=== PATIENT | female | born 1980 | race Caucasian/White ===

== ENCOUNTER → 2022-12-03 08:14 | Outpatient (CLI) | payer BC, SELFPAY ==
--- NOTE | ~2022-12-03 | MM_ITS ---
EXAMINATION: MM screening kali BI w mikayla HISTORY: Screening mammogram TECHNIQUE: Craniocaudal and mediolateral oblique 3-D tomosynthesis images were obtained and synthetic 2-D images were generated. CAD analysis was submitted and interpreted. COMPARISON: No prior mammogram is available for comparison at this institution. BREAST PARENCHYMAL COMPOSITION: There are scattered areas of fibroglandular density. FINDINGS: RIGHT BREAST: No suspicious mass, calcification, or architectural distortion are identified to sugges t malignancy. LEFT BREAST: There are possible masses in the middle third of the central breast. IMPRESSION: 1. Possible left breast masses which may represent the patient's baseline however no comparison is cu rrently available. 2. Comparison with prior mammograms is necessary. BI-RADS Category 0: Incomplete: Needs comparison with prior mammograms. Reviewed, dictated and finalized at location A. IMPRESSION: 1. Possible left breast masses which may represent the patient's baseline howev er no comparison is currently available. 2. Comparison with prior mammograms is necessary. BI-RADS Category 0: Incomplete: Needs comparison with prior mammograms.
== END ==
PROVIDERS: PCP Internal Medicine; Visit Provider Nurse Practitioner Obstetrics & Gynecology
DX: Z12.31 Encounter for screening mammogram for malignant neoplasm of breast (principal); R92.8 Other abnormal and inconclusive findings on diagnostic imaging of breast
CPT/HCPCS: 77063; 77067

== ENCOUNTER 2024-05-06 10:07 | Outpatient (CLI) | payer BC, SELFPAY ==
--- NOTE | ~2024-05-06 | MM_ITS ---
EXAMINATION: MM screening kali BI w mikayla HISTORY: Screening TECHNIQUE: Craniocaudal and mediolateral oblique 3-D tomosynthesis images were obtained and synthetic 2-D images were generated. CAD analysis was submitted and interpreted. COMPARISON: Comparison to multiple prior studies sequentially, with oldest reviewed study dated 07/07. BREAST PARENCHYMAL COMPOSITION: Not dense: There are scattered areas of fibroglandular density. FINDINGS: There are clustered indeterminate periareolar calcifications of the left breast. There are possible periareolar masses which are obscured by fibroglandular tissue. The right breast is stable w ithout evidence for malignancy. IMPRESSION: 1. Indeterminate periareolar left breast calcifications with possible associated nearby masses. 2. Additional mammographic views and possible breast ultrasound are recommended. BI-RADS Category 0: Incomplete: Needs additional imaging evaluation. Reviewed, dictated and finalized at location A. [employer] IMPRESSION: 1. Indeterminate periareolar left breast calcifications with possible associate d nearby masses. 2. Additional mammographic views and possible breast ultrasound are recommended . BI-RADS Category 0: Incomplete: Needs additional imaging evaluation.
== END 2024-05-06 10:08 | disposition home or self-care (01) ==
LOC: MICIMG 10:10
PROVIDERS: PCP Internal Medicine; Visit Provider Obstetrics & Gynecology
DX: Z12.31 Encounter for screening mammogram for malignant neoplasm of breast (principal); R92.8 Other abnormal and inconclusive findings on diagnostic imaging of breast
CPT/HCPCS: 77063; 77067

== ENCOUNTER 2024-05-23 08:45 | Outpatient (CLI) | payer BC, SELFPAY ==
--- NOTE | ~2024-05-23 | MMUS_ITS ---
EXAMINATION: MM diagnostic kali LT w mikayla, US breast LT complete HISTORY: Abnormal mammogram TECHNIQUE: Additional 3-D tomosynthesis images of the left breast were performed and synthetic 2-D im ages were generated. CAD analysis was submitted and interpreted. High resolution Limited left breast ultrasound was performed. COMPARISON: Comparison to multiple prior studies sequentially, with oldest reviewed study dated 07/07. BREAST PARENCHYMAL COMPOSITION: Dense: The breasts are heterogeneously dense, which may obscure small masses FINDINGS: MAMMOGRAPHIC FINDINGS: There is a mass in the lower inner quadrant of the left breast, middle third. There are punctate clus tered calcifications in the periareolar location which are likely benign. There is no evidence for ar chitectural distortion. ULTRASOUND: Complete US of all 4 quadrants of the left breast/s and retroareolar region was reviewed. At 7:00, 6 cm from the nipple there is a 5 mm cyst. This corresponds to the mammographic finding. No suspicious sonographic abnormalities to suggest malignancy. IMPRESSION: 1. Probable benign left periareolar calcifications. Benign left breast cyst. 2. Recommend 6 month follow-up diagnostic left mammogram BI-RADS category 3, probably benign findings. Reviewed, dictated and finalized at location [] [facility] IMPRESSION: 1. Probable benign left periareolar calcifications. Benign left breast cyst. 2. Recommend 6 month follow-up diagnostic left mammogram BI-RADS category 3, probably benign findings.
== END 2024-05-23 08:46 | disposition home or self-care (01) ==
PROVIDERS: PCP Obstetrics & Gynecology; Visit Provider Student in an Organized Health Care Education/Training Program
DX: R92.8 Other abnormal and inconclusive findings on diagnostic imaging of breast (principal); N60.02 Solitary cyst of left breast
CPT/HCPCS: 76641; 77061; 77065; G0279

== ENCOUNTER 2024-07-11 00:06 | Day surgery (SDC) | payer BC, SELFPAY ==
[2024-07-01 13:43] VITALS: BMI 41.8
--- OUTSIDE RECORDS SUMMARY | 2024-07-11 00:09 | XMS_ITS ---
Anxiety Disorder N Autoimmune disease N Arthritis N Polyps N Infertility N Acid Reflux (GERD) N History of abnormal pap Y Cancer N Varicosities N Stroke N Neurologic/Epilepsy N Endometriosis N High Cholesterol N Fibromyalgia N Headaches N Kidney Disease N Heart Problems N Thyroid Problems N Kidney or Bladder Problems N GI Problems N Eating Disorder N Anemia N Art (IVF or FET) N Psychiatric Illness N Ovarian Cancer N Diabetes N Pulmonary (TB, Asthma) N Hepatitis/Liver Disease N No Past Medical History N Eczema N Urinary Tract Infection N Abuse/Domestic Violence N Asthma Y Trauma/Violence N Depression/ depression N Heart Disease N Pre-Eclampsia N Hypertension N Osteoporosis N Thrombophilias N Gynecological History Statement/Question Response Date of Last Mammogram 05/06/2024 [place] Date of LMP 08/25/2022 N Was last menstrual period normal N STIs/STDs N Date of Last Colonoscopy N/A Desired Control Method Sterilizati on Abnormal Pap Yes On BCP's at Conception? N HPV Vaccine N Duration of Flow (days) 3 Current Control Method IUD 12 Age at First Child 19 Are cycles usually normal N Frequency of Cycle (Q days) 5 Sexually Active? Y Menses Monthly N Date of DEXA bone scan Age of first menstrual cycle 11 Date of Last Pap Smear 09/22/2022 Sexual Problems? N LMP Approximate N Obstetrics History GPAL:G 2 P 2 0 0 2 Type Value Full Term 2 Living 2 Total 2 Past Encounters Encounter ID Performer Location Encounter Start Date Encounter Closed Date Diagnosis/Indication Diagnosis SNOMED-CT Code Diagnosis ICD10 Code Diagnosis Note [id number] Susan Govea [facility] [address] [address] 09/13/2022 09:12:20 09/13/2022 10:20:16 Abnormal uterine bleeding [id number] 9100 N93.9 The patient and I discussed the various causes of abnormal uterine bleeding, including polyps, fibroids, hyperplasi a, atypia, anovulatio n, etc. We reviewed the typical evaluation with labs, pelvic US and possible endometria l biopsy. Briefly discussed the options available for treatment (depending on the results of evaluation ) such as hormonal treatment (OCPs, progestins ), Mirena, endometria l ablation, and surgery. We spent more than 30 minutes face to face. NOTE: Has an IUD mirena. Exam inconclusi ve so agreeable to labs & US. F/U WWE with discuss results. Obese [id number] E66.9 Rec diet/activ ity/dietic titi/weight loss clinic if covered [id number] Kelsey Holbrook [place] [address],[place] [address] 09/14/2022 09:57:59 09/14/2022 10:48:25 Abnormal uterine bleeding [id number] 9100 N93.9 [id number] Susan Govea , [facility] [address] [address] 09/22/2022 10:00:54 09/22/2022 10:37:51 Gynecologic examination [id number] Z01.419 Suggested Calcium with Vitamin D 1200-1500m g daily. Patient advised to get an annual flu shot in the fall and she could obtain at [facility] or [facility]. Also to obtain TDap vaccinatio n if you have not had one in the last 10 years. Recommend yearly mammograms . Encouraged monthly self breast exams. Encourage safe sexual practices, to use condoms and limit partners if not already in a monogamous relationsh ip. Engage in daily exercise of low impact aerobic exercise 45-60 minutes 4-5 times weekly. Avoid tobacco and illicit drugs as well as using moderation with alcohol intake less than 1-2 8 oz beverages daily. This lifestyle behavior pattern will lead to less health conditions and longer life span. If BMI greater than 25 weight watchers or dietary consult advised. All questions have been answered. Patient appears to understand informatio n, but if you have any questions please call or respond to this email.Pap/ hpv sentSTD Screen sentGeneti c Screen discussedC olon Screen PCPDexa Screen naRoutine Labs PCPmammo ordered Laboratory test result abnormal [id number] R89.9 Today we agreed to repeat the CBC & defer to primary care doctor.Res ults faxed to PCP Screening mammography 24 [id number] Z12.31 Menorrhagia [id number] N9 2.0 US reviwedLab reviewed Discussed option to remove Mirena IUD at 4yrs and replace with new device since using it for heavy menses; and since she is having daily spotting. We also discussed MD consult to consider possible hysterecto my. She will make this appt, consider her options and decide from there. [id number] JARVIS MOELLER, [facility] [place] [address] [address] 05/07/2024 09:07:48 05/07/2024 10:08:23 Gynecologic examination [id number] Z01.419 Annual gynecologi an exam performed. Patient will come back in a year unless there are new symptoms. Suggest Calcium with Vitamin D if not eating in diet. Patient advised to get annual flu shot. Recommend yearly physicals and perform monthly breast exams. Genetic testing is available for patients with family history of cancer. Engage in safe sexual practices, use condoms. Encouraged to have daily exercise. Avoid tobacco and illicit drugs, moderation of alcohol. If BMI greater than 25 dietary consult advised. If you have any questions please call or email. mammogram- discussed need for additional imaging - BIRADS 0 - 05/06/24Dia gnostic mammogram with left breast u/s needed colon cancer screening - DUE; GI referral to [place] DEXA scan- n/a Pap smear- UTD (2022- WNL), will repeat in 2025 per ASCCP guidelines laboratory evaluation - PCP STI testing - declined A Mirena IUD prevents for up to 8 years, and also helps with heavy periods for up to 5 years in women who choose an IUD for control. Screening for malignant neoplasm of colon [id number] Z12.11 Inconclusi ve mammography finding [id number] 32610 R92.2 Health Concerns Section Related Observation LastModified by Organization Detai ls LastModified Time None Recorded Concern Status LastModified by Organization Details LastModified Time None Recorded Advance Directives Directive N: Payers Encounter Date Sequence Insurance Name Policy Number Policy Guido Covered Member ID Guido Member ID Guarantor Name 09/13/2022 1 [place] [id number] Juana [id number] Juana Henry 09/14/2022 1 [place] [id number] Juana [id number] Juana Henry 09/22/2022 1 [place] [id number] Juana [id number] Juana Henry 05/07/2024 1 [facility]: ([place] [id number] Juana Telles Carl [id number] Juana Henry Notes Date Note Type Note Provider Name and Address Organization Details Recorded Time 09/13/2022 text/html Beer - Abnormal BleedingReported bypatient.Notes:Here today for AUB with mirena IUD x 8 mos.No other sx's.+PCBFeels strings.Started out of nowhere.Daily pink tinge on toilet tissue. Neg Dyspareunia Neg pain of abd/pelvis/flankNeg urinary sx'sNeg GI sx'sNeg N/V/F/C/DNeg Vag d/c, odor, irritation, itching [facility] [address], [place], [address], [facility] 09/13/2022 09:43:14 09/22/2022 text/html Annual GYNReport ed bypatient.Menstrual cycle:Irregular cycle intervals Urinary symptoms:No hematuria; No incontinence Vulva:No genital lesion Vagina:Normal vaginal discharge Breast:No breast pain; No breast lump; No nipple discharge Current Contraception:Satisfi ed with current contraception; Intrauterine device (iud) Sexual complaints:No sexual complaints; No pain during intercourse; Normal libido Menopausal Symptoms:No menopausal symptoms; Normal vaginal lubrication Psychological symptoms:No depression; No anxiety; No PMDD Preventive measures:Encourage self breast examination; Encourage regular exercise; Encourage no tobacco use; Encourage regular mammograms starting age 40; Followed with yearly pap smears; Needs to schedule mammogram GERARDO Smith [address], [place], [address], [facility] 09/22/2022 10:31:50 05/07/2024 text/html Annual GYNReport ed bypatient.History:no gynecologic complaints Menstrual cycle:No periods with IUD Urinary symptoms:No hematuria; No incontinence Vulva:No genital lesion Vagina:Normal vaginal discharge Breast:No breast pain; No breast lump; No nipple discharge Current Contraception:Satisfi ed with current contraception; Intrauterine device (iud) Sexual complaints:No sexual complaints; No pain during intercourse; Normal libido Menopausal Symptoms:No menopausal symptoms; Normal vaginal lubrication Psychological symptoms:No depression; No anxiety; No PMDD Preventive measures:Encourage self breast examination; Encourage regular exercise; Encourage no tobacco use; Encourage regular mammograms starting age 40 Patient presents for annual well woman exam. Patient denies concerns today. JARVIS MOELLER NP [address], [place], [address], [facility] 05/07/2024 10:01:34 OBGyn Episode Ob Episode Information Episode Created Date Number of Fetuses Patient Bloodtype Patient rh Status Prepregnancy Weight lbs Domestic Partner Domestic Partner Phone Father Name Motion Picture Narrator Status 09/14/19 23 1 CLOSED Fetus Data First Name Last Name Admitted to NICU Weight (g) Sex Living Outcome Pediatric Complications Fetus ID Race Codes Race Delivery Type 3685.43 5 M Full Term Vaginal Delivery Bertin Calculation Initial Bertin Date Initial Exam Date Initial Exam Provider Initial Ultrasound Date Last Menstrual Period Date Ultra Sound Weeks Gestation 0 Eighteen To Twenty Week Bertin Update Ultra Sound Date Fundal Height At Umbil Quickening Date Ultra Sound Latest Weeks Gestation Final Bertin Confirmed By Final Bertin Confirmed Date Final Bertin Date Ultra Sound Latest Days Gestation 0 0 Menstrual History Last Menstrual Date Menses Monthly On Bcp Conception Prior Menses Frequency Hcg Plus Date Menarche Onset Age Delivery Information Delivery Date Delivery Type Labor Anesthesia Weeks Gestation Incision Type Labor Labor Length Hrs Delivered By Post Complications Tubal Sterilization Discharge Date Comments 2 39 Discharge Information Feeding Method Contraceptive Method Maternal HG B and HCT Levels Ob Episode Information Episode Created Date Number of Fetuses Patient Bloodtype Patient rh Status Prepregnancy Weight lbs Domestic Partner Domestic Partner Phone Father Name Motion Picture Narrator Status 09/14/19 23 1 CLOSED Fetus Data First Name Last Name Admitted to NICU Weight (g) Sex Living Outcome Pediatric Complications Fetus ID Race Codes Race Delivery Type 3033.16 9704 F Full Term Vaginal Delivery Bertin Calculation Initial Bertin Date Initial Exam Date Initial Exam Provider Initial Ultrasound Date Last Menstrual Period Date Ultra Sound Weeks Gestation 0 Eighteen To Twenty Week Bertin Update Ultra Sound Date Fundal Height At Umbil Quickening Date Ultra Sound Latest Weeks Gestation Final Bertin Confirmed By Final Bertin Confirmed Date Final Bertin Date Ultra Sound Latest Days Gestation 0 0 Menstrual History Last Menstrual Date Menses Monthly On Bcp Conception Prior Menses Frequency Hcg Plus Date Menarche Onset Age Delivery Information Delivery Date Delivery Type Labor Anesthesia Weeks Gestation Incision Type Labor Labor Length Hrs Delivered By Post Complications Tubal Sterilization Discharge Date Comments 0 40 Discharge Information Feeding Method Contraceptive Method Maternal HG B and HCT Levels Data Portability Created on: July 11, 2024 Juana Henry .[id number] : 1980 Sex: Female Author Organization [facility] Address [address] [place] [address] Care Team Providers Care Padded Products Finisher Name Role Phone VIOLETTA HUNT Primary Care Provider [phone] Assessment Encounter Date Assessment Date Assessment LastModified by Organization Details LastModified Time 09/22/2022 09/22/2022 Annual gynecological exam performed. Patient will come back in a year unless there are new symptoms. Not available 09/22/2022 10:11:17 05/07/2024 05/07/2024 Annual gynecological exam performed. Patient will come back in a year unless there are new symptoms. [email or web address] Not available 05/04/2024 11:24:26 Plan of Treatment Reminders Order Date Submit Date Provider Last Modified By Organization Details Last Modified Time Details Appointments None recorded. Lab CBC w/ auto diff [address] [facility] (Lab), [address], [place], [address], 3 04:48:05 hormone panel, serum or plasma [address] [facility] (Lab), [address] [place], [address], 3 21:12:04 HbA1c (hemoglobi n A1c), blood [address] [facility] (Lab), [address], [place], [address], 3 21:12:03 prolactin, serum [address] [facility] (Lab), [address], [place], [address], 3 21:12:04 testostero ne free/testo sterone total, ratio, serum [address] [facility] (Lab), [address], [place], [address], 3 21:12:04 TSH, serum or plasma [address] [facility] (Lab), [address], [place], [address], 3 21:12:03 unlisted lab - cbcwdiff / comprehens ivis metabolic panel [address] [facility] (Lab), [address] [facility], [place], [address], 3 21:12:02 Referral None recorded. Procedures colonoscop y screening (PROC) 2024 025 [facility], [address], [address], [place], [address], 5 11:06:01 Surgeries None recorded. Imaging MAMMO, diagnostic , digital, bilateral - BIRADS 0 2024 025 [facility], [address], [place], [address], 5 04:01:27 MAMMO, screening, bilateral 2022 023 [facility] [place], [address], [place], [address], 09:56:04 US, pelvis 2022 023 [email or web address] [address], [address], [place], [address], 17:01:30 US, transvagin al 2022 023 [email or web address] [facility] [place], [address], [place], [address], 17:01:30 US, pelvis, complete 2022 023 [email or web address] [address], [address], [place], [address], 15:32:27 Medication Orders None recorded. Patient TargetsNo targets recorded. Patient InstructionsNo instructions recorded. Reason for Referral None Reported. Results Created Date Observation Date Name Description Value Unit Range Abnormal Flag Note LastModifiedBy Organization Detail LastModifiedTime 09/14/1909/13/2022 CT/GC AND TRICH OMONA S VAGIN MUNIR (RRNA ), SWAB chlamydia trachomatis, PCR Negati ve negati ve Not Available [facility] (Lab) [address] [place], [address], 09/14/2022 12:02:51 09/14/19 23 09/13/2022 CT/GC AND TRICH OMONA S VAGIN MUNIR (RRNA ), SWAB neisseria gonorrhoeae, PCR Negati ve negati ve Not Available [facility] (Lab) [address], [place], [address], 09/14/2022 12:02:51 09/14/19 23 09/13/2022 CT/GC AND TRICH OMONA S VAGIN MUNIR (RRNA ), SWAB trichomonas vaginalis ribosomal RNA (rrna) Negati ve negati ve Not Available [facility] (Lab) [address], [place], [address], 09/14/2022 12:02:51 09/14/19 23 09/13/2022 CBCWD IFF / COMPR EHENS IVIS METAB OLIC PANEL WBC 14.7 10'3/ uL 3.6-10 .2 high Not Available [facility] (Lab) [address], [place], [address], 09/19/2022 21:12:02 09/14/19 23 09/13/2022 CBCWD IFF / COMPR EHENS IVIS METAB OLIC PANEL RBC 5.40 10'6/ uL (based on docume nted legal sex) 4.10-5 .30 high Not Available [facility] (Lab) [address], [place], [address], 09/19/2022 21:12:02 09/14/19 23 09/13/2022 CBCWD IFF / COMPR EHENS IVIS METAB OLIC PANEL HGB 17.0 g/dL (based on docume nted legal sex) 11.9-1 5.8 high Not Available [facility] (Lab) [address], [place], [address], 09/19/2022 21:12:02 09/14/19 23 09/13/2022 CBCWD IFF / COMPR EHENS IVIS METAB OLIC PANEL HCT 53.9 % (based on docume nted legal sex) 37.4-4 8.3 high Not Available [facility] (Lab) [address], [place], [address], 09/19/2022 21:12:02 09/14/19 23 09/13/2022 CBCWD IFF / COMPR EHENS IVIS METAB OLIC PANEL MCV 99.8 fL 82.0-9 9.0 high Not Available [facility] (Lab) [address], [place], [address], 09/19/2022 21:12:02 09/14/19 23 09/13/2022 CBCWD IFF / COMPR EHENS IVIS METAB OLIC PANEL MCH 31.5 pg 27.0-3 3.0 Not Available [facility] (Lab) [address], [place], [address], 09/19/2022 21:12:02 09/14/19 23 09/13/2022 CBCWD IFF / COMPR EHENS IVIS METAB OLIC PANEL MCHC 31.5 g/dL 32.0-3 6.0 low Not Available [facility] (Lab) [address], [place], [address], 09/19/2022 21:12:02 09/14/19 23 09/13/2022 CBCWD IFF / COMPR EHENS IVIS METAB OLIC PANEL RDW 13.2 % 11.0-1 5.0 Not Available [facility] (Lab) [address], [place], [address], 09/19/2022 21:12:02 09/14/19 23 09/13/2022 CBCWD IFF / COMPR EHENS IVIS METAB OLIC PANEL plt 379 10'3/ uL 150-45 0 Not Available [facility] (Lab) [address], [place], [address], 09/19/2022 21:12:02 09/14/19 23 09/13/2022 CBCWD IFF / COMPR EHENS IVIS METAB OLIC PANEL MPV 11.8 fL 9.8-12 .7 Not Available [facility] (Lab) [address], [place], [address], 09/19/2022 21:12:02 09/14/19 23 09/13/2022 CBCWD IFF / COMPR EHENS IVIS METAB OLIC PANEL NRBC's 0.0 % 0 Not Available [facility] (Lab) [address], [place], [address], 09/19/2022 21:12:02 09/14/19 23 09/13/2022 CBCWD IFF / COMPR EHENS IVIS METAB OLIC PANEL absolute NRBCs 0.0 10'3/ uL 0 Not Available [facility] (Lab) [address], [place], [address], 09/19/2022 21:12:02 09/14/19 23 09/13/2022 CBCWD IFF / COMPR EHENS IVIS METAB OLIC PANEL neutrophils 76.7 % 37.0-7 2.0 high Not Available [facility] (Lab) [address], [place], [address], 09/19/2022 21:12:02 09/14/19 23 09/13/2022 CBCWD IFF / COMPR EHENS IVIS METAB OLIC PANEL lymphocytes 14.1 % 16.0-4 8.0 low Not Available [facility] (Lab) [address], [place], [address], 09/19/2022 21:12:02 09/14/19 23 09/13/2022 CBCWD IFF / COMPR EHENS IVIS METAB OLIC PANEL monocytes 6.4 % 4.0-14 .0 Not Available [facility] (Lab) [address], [place], [address], 09/19/2022 21:12:02 09/14/19 23 09/13/2022 CBCWD IFF / COMPR EHENS IVIS METAB OLIC PANEL eosinophils 1.9 % 0.0-9. 0 Not Available [facility] (Lab) [address], [place], [address], 09/19/2022 21:12:02 09/14/19 23 09/13/2022 CBCWD IFF / COMPR EHENS IVIS METAB OLIC PANEL basophils 0.4 % 0.0-2. 0 Not Available [facility] (Lab) [address], [place], [address], 09/19/2022 21:12:02 09/14/19 23 09/13/2022 CBCWD IFF / COMPR EHENS IVIS METAB OLIC PANEL immature granulocytes 0.5 % no define d refere nce range Not Available [facility] (Lab) [address], [place], [address], 09/19/2022 21:12:02 09/14/19 23 09/13/2022 CBCWD IFF / COMPR EHENS IVIS METAB OLIC PANEL absolute neutrophils 11.2 10'3/ uL 1.1-6. 0 high Not Available [facility] (Lab) [address], [place], [address], 09/19/2022 21:12:02 09/14/19 23 09/13/2022 CBCWD IFF / COMPR EHENS IVIS METAB OLIC PANEL absolute lymphocytes 2.1 10'3/ uL 0.7-3. 4 Not Available [facility] (Lab) [address], [place], [address], 09/19/2022 21:12:02 09/14/19 23 09/13/2022 CBCWD IFF / COMPR EHENS IVIS METAB OLIC PANEL absolute monocytes 0.9 10'3/ uL 0.3-1. 0 Not Available [facility] (Lab) [address], [place], [address], 09/19/2022 21:12:02 09/14/19 23 09/13/2022 CBCWD IFF / COMPR EHENS IVIS METAB OLIC PANEL absolute eosinophils 0.3 10'3/ uL 0.0-0. 6 Not Available [facility] (Lab) [address], [place], [address], 09/19/2022 21:12:02 09/14/19 23 09/13/2022 CBCWD IFF / COMPR EHENS IVIS METAB OLIC PANEL absolute basophils 0.1 10'3/ uL 0.0-0. 1 Not Available [facility] (Lab) [address], [place], [address], 09/19/2022 21:12:02 09/14/19 23 09/13/2022 CBCWD IFF / COMPR EHENS IVIS METAB OLIC PANEL absolute immature granulocytes 0.1 10'3/ uL 0.00-0 .10 023 8:11 AM: P indic ates parti al resul ts on a panel have been relea sed. Addit ional resul ts will follo w. 023 8:11 AM: This resul t has been final verif ied. No addit ional or thomas ed resul ts are expec radha. Not Available [facility] (Lab) [address], [place], [address], 09/19/2022 21:12:02 09/14/19 23 09/13/2022 CBCWD IFF / COMPR EHENS IVIS METAB OLIC PANEL sodium 137 mmol/ L 133-14 6 Not Available [facility] (Lab) [address], [place], [address], 09/19/2022 21:12:02 09/14/19 23 09/13/2022 CBCWD IFF / COMPR EHENS IVIS METAB OLIC PANEL potassium 4.5 mmol/ L 3.5-5. 1 Not Available [facility] (Lab) [address], [place], [address], 09/19/2022 21:12:02 09/14/19 23 09/13/2022 CBCWD IFF / COMPR EHENS IVIS METAB OLIC PANEL chloride 102 mmol/ L 98-107 Not Available [facility] (Lab) [address] [place], [address], 09/19/2022 21:12:02 09/14/19 23 09/13/2022 CBCWD IFF / COMPR EHENS IVIS METAB OLIC PANEL carbon dioxide 25 mmol/ L 21-31 Not Available [facility] (Lab) [address] [place], [address], 09/19/2022 21:12:02 09/14/19 23 09/13/2022 CBCWD IFF / COMPR EHENS IVIS METAB OLIC PANEL anion gap 10 mmol/ L 4-13 Not Available [facility] (Lab) [address], [place], [address], 09/19/2022 21:12:02 09/14/19 23 09/13/2022 CBCWD IFF / COMPR EHENS IVIS METAB OLIC PANEL blood urea nitrogen 11 mg/dL 7-25 Not Available [facility] (Lab) [address], [place], [address], 09/19/2022 21:12:02 09/14/19 23 09/13/2022 CBCWD IFF / COMPR EHENS IVIS METAB OLIC PANEL creatinine 0.86 mg/dL 0.60-1 .30 Not Available [facility] (Lab) [address], [place], [address], 09/19/2022 21:12:02 09/14/19 23 09/13/2022 CBCWD IFF / COMPR EHENS IVIS METAB OLIC PANEL egfrcr (CKD-epi 2020) 86 mL/mi n/1.7 3_m2 >=60 Not Available [facility] (Lab) [address], [place], [address], 09/19/2022 21:12:02 09/14/19 23 09/13/2022 CBCWD IFF / COMPR EHENS IVIS METAB OLIC PANEL calcium 9.9 mg/dL 8.3-10 .5 Not Available [facility] (Lab) [address], [place], [address], 09/19/2022 21:12:02 09/14/19 23 09/13/2022 CBCWD IFF / COMPR EHENS IVIS METAB OLIC PANEL glucose 87 mg/dL 70-100 Not Available [facility] (Lab) [address], [place], [address], 09/19/2022 21:12:02 09/14/19 23 09/13/2022 CBCWD IFF / COMPR EHENS IVIS METAB OLIC PANEL protein, total 7.6 g/dL 6.4-8. 3 Not Available [facility] (Lab) [address], [place], [address], 09/19/2022 21:12:02 09/14/19 23 09/13/2022 CBCWD IFF / COMPR EHENS IVIS METAB OLIC PANEL albumin 4.7 g/dL 3.5-5. 0 Not Available [facility] (Lab) [address], [place], [address], 09/19/2022 21:12:02 09/14/19 23 09/13/2022 CBCWD IFF / COMPR EHENS IVIS METAB OLIC PANEL ALT 16 units /L 9-43 Not Available [facility] (Lab) [address], [place], [address], 09/19/2022 21:12:02 09/14/19 23 09/13/2022 CBCWD IFF / COMPR EHENS IVIS METAB OLIC PANEL alkaline phosphatase 46 units /L 34-104 Not Available [facility] (Lab) [address], [place], [address], 09/19/2022 21:12:02 09/14/19 23 09/13/2022 CBCWD IFF / COMPR EHENS IVIS METAB OLIC PANEL AST 18 units /L 13-39 Not Available [facility] (Lab) [address], [place], [address], 09/19/2022 21:12:02 09/14/19 23 09/13/2022 CBCWD IFF / COMPR EHENS IVIS METAB OLIC PANEL bilirubin, total 0.6 mg/dL 0.2-1. 2 Not Available [facility] (Lab) [address], [place], [address], 09/19/2022 21:12:02 09/14/19 23 09/13/2022 HEMOG LOBIN A1C hemoglobin A1C 5.5 % 0-5.6 The [employer]i can [employer] i[employer] n recom mends that a prima ry goal of audra villasenor d be a HBA1C of < 7% and that physi colette grant luthea the treat ment regim en in patie nts with HBA1C value s consi stent ly > 8%. <5.7% Linnea l 5.7 - 6.4% Incre ased risk for diabe april >=6.5 % Diagn ostic of diabe april <7.0% Goal of thera py >8.0% Actio n sugge sted Not Available [facility] (Lab) [address] [place], [address], 09/19/2022 21:12:03 09/14/19 23 09/13/2022 TSH, REFLE X FREE T4 TSH 1.26 uIU/m L 0.30-5 .33 Not Available [facility] (Lab) [address] [place], [address], 09/19/2022 21:12:03 09/14/19 23 09/13/2022 PROLA CTIN prolactin, total 5.92 NG/mL 4.79-2 3.30 This assay was perfo rmed using [employer] ratio n reage nts and test kits. Value s obtai ladi with other assay metho ds or kits canno t be used inter thomas eay . Not Available [facility] (Lab) [address] [place], [address], 09/19/2022 21:12:03 09/14/19 23 09/13/2022 FSH, LH, ESTRA DIOL estradiol 14.3 pg/mL This assay was perfo rmed using [employer] reage nts and test kits. Value s obtai ladi with other assay metho ds or kits canno t be used inter [facility] . Femal e Estra diol Range s: Folli cular phase 12.4- 233 pg/mL Ovula tion phase 41.0- 398 pg/mL Lutea l phase 22.3- 341 pg/mL Postm enopa usal< 5-138 pg/mL Healt hy Pregn ant Women 1st Trime ster1 54-32 43 pg/mL 2nd Trime ster1 561-2 1280 pg/mL 3rd Trime ster8 525-> 28184 pg/mL Not Available [facility] (Lab) [address], [place], [address], 09/19/2022 21:12:04 09/14/19 23 09/13/2022 FSH, LH, ESTRA DIOL FSH 40.3 mIU/m L This assay was perfo rmed using [employer] reage nts and test kits. Value s obtai ladi with other assay metho ds or kits canno t be used inter thomas eably . Femal es Folli cular : 3.5-1 2.5 mIU/m L Ovula tion: 4.7-2 1.5 mIU/m L Lutea l: 1.7-7 .7 mIU/m L Postm enopa use: 25.8- 134.8 mIU/m L Not Available [facility] (Lab) [address] [facility], [place], [address], 09/19/2022 21:12:04 09/14/19 23 09/13/2022 FSH, LH, ESTRA DIOL LH 17.9 mIU/m L This assay was perfo rmed using [employer] reage nts and test kits. Value s obtai ladi with other assay metho ds or kits canno t be used inter thomas eably . Femal es Mid-F ollic ular: 2.4-1 2.6 mIU/m L Mid-C ycle: 14.0- 95.6 mIU/m L Mid-L uteal : 1.0-1 1.4 mIU/m L Postm enopa use: 7.7-5 8.5 mIU/m L Not Available [facility] (Lab) [address] [place], [address], 09/19/2022 21:12:04 09/14/19 23 09/13/2022 TESTO STERO NE, FREE( DIALY SIS) AND TOTAL (LC/M S/MS) testosterone , total 21 NG/dL 2-45 For addit ional infor matio n, pleas e refer to http: //manuel palomares.que stdia gnost ics.c om/fa q/Tot Charly Ruff [facility] (This link is being provi ded for infor mateoneha plasencia/ educa kandace l purpo ses only. ) This test was devel oped and its michelle tical perfo rmanc e paula cteri stics have been deter mined by [facility]. It has not been clear ed or appro eren by the FDA. This assay has been valid ated pursu ant to the CLIA regul ation s and is used for clini an purpo ses. Not Available [facility] (Lab) [address], [place], [address], 09/19/2022 21:12:04 09/14/19 23 09/13/2022 TESTO STERO NE, FREE( DIALY SIS) AND TOTAL (LC/M S/MS) testosterone , free 2.7 pg/mL 0.1-6. 4 This test was devel oped and its michelle tical perfo rmanc e paula cteri stics have been deter mined by [employer] [facility]. It has not been clear ed or appro eren by the FDA. This assay has been valid ated pursu ant to the CLIA regul ation s and is used for clini an purpo ses. Perfo rming Organ izati on Marvin palomares: Site ID: [id number] Name: [facility] Annia ruiz Addre ss: [id number] [place] [address] Direc tor: Hunter hernandez M.D. Not Available [facility] (Lab) [address], [place], [address], 09/19/2022 21:12:04 09/23/19 23 09/22/2022 CBC W/DIF F WBC 13.3 10'3/ uL 3.6-10 .2 high Not Available [facility] (Lab) [address], [place], [address], 09/23/2022 04:48:05 09/23/19 23 09/22/2022 CBC W/DIF F RBC 5.09 10'6/ uL (based on docume nted legal sex) 4.10-5 .30 Not Available [facility] (Lab) [address] [place], [address], 09/23/2022 04:48:05 09/23/19 23 09/22/2022 CBC W/DIF F HGB 16.0 g/dL (based on docume nted legal sex) 11.9-1 5.8 high Not Available [facility] (Lab) [address] [facility], [place], [address], 09/23/2022 04:48:05 09/23/19 23 09/22/2022 CBC W/DIF F HCT 49.3 % (based on docume nted legal sex) 37.4-4 8.3 high Not Available [facility] (Lab) [address], [place], [address], 09/23/2022 04:48:05 09/23/19 23 09/22/2022 CBC W/DIF F MCV 96.9 fL 82.0-9 9.0 Not Available [facility] (Lab) [address], [place], [address], 09/23/2022 04:48:05 09/23/19 23 09/22/2022 CBC W/DIF F MCH 31.4 pg 27.0-3 3.0 Not Available [facility] (Lab) [address], [place], [address], 09/23/2022 04:48:05 09/23/19 23 09/22/2022 CBC W/DIF F MCHC 32.5 g/dL 32.0-3 6.0 Not Available [facility] (Lab) [address] [place], [address], 09/23/2022 04:48:05 09/23/19 23 09/22/2022 CBC W/DIF F RDW 12.7 % 11.0-1 5.0 Not Available [facility] (Lab) [address], [place], [address], 09/23/2022 04:48:05 09/23/19 23 09/22/2022 CBC W/DIF F plt 351 10'3/ uL 150-45 0 Not Available [facility] (Lab) [address], [place], [address], 09/23/2022 04:48:05 09/23/19 23 09/22/2022 CBC W/DIF F MPV 12.1 fL 9.8-12 .7 Not Available [facility] (Lab) [address], [place], [address], 09/23/2022 04:48:05 09/23/19 23 09/22/2022 CBC W/DIF F NRBC's 0.0 % 0 Not Available [facility] (Lab) [address] [facility], [place], [address], 09/23/2022 04:48:05 09/23/19 23 09/22/2022 CBC W/DIF F absolute NRBCs 0.0 10'3/ uL 0 Not Available [facility] (Lab) [address], [place], [address], 09/23/2022 04:48:05 09/23/19 23 09/22/2022 CBC W/DIF F neutrophils 68.9 % 37.0-7 2.0 Not Available [facility] (Lab) [address], [place], [address], 09/23/2022 04:48:05 09/23/19 23 09/22/2022 CBC W/DIF F lymphocytes 20.5 % 16.0-4 8.0 Not Available [facility] (Lab) [address], [place], [address], 09/23/2022 04:48:05 06/15/09/22/2022 CBC W/DIF F monocytes 7.8 % 4.0-14 .0 Not Available [facility] (Lab) [address], [place], [address], 09/23/2022 04:48:05 09/23/19 23 09/22/2022 CBC W/DIF F eosinophils 2.0 % 0.0-9. 0 Not Available [facility] (Lab) [address] [place], [address], 09/23/2022 04:48:05 09/23/19 23 09/22/2022 CBC W/DIF F basophils 0.4 % 0.0-2. 0 Not Available [facility] (Lab) [address], [place], [address], 09/23/2022 04:48:05 09/23/19 23 09/22/2022 CBC W/DIF F immature granulocytes 0.4 % no define d refere nce range Not Available [facility] (Lab) [address], [place], [address], 09/23/2022 04:48:05 09/23/19 23 09/22/2022 CBC W/DIF F absolute neutrophils 9.2 10'3/ uL 1.1-6. 0 high Not Available [facility] (Lab) [address] [place], [address], 09/23/2022 04:48:05 09/23/19 23 09/22/2022 CBC W/DIF F absolute lymphocytes 2.7 10'3/ uL 0.7-3. 4 Not Available [facility] (Lab) [address] [place], [address], 09/23/2022 04:48:05 09/23/19 23 09/22/2022 CBC W/DIF F absolute monocytes 1.0 10'3/ uL 0.3-1. 0 Not Available [facility] (Lab) [address] [place], [address], 09/23/2022 04:48:05 09/23/19 23 09/22/2022 CBC W/DIF F absolute eosinophils 0.3 10'3/ uL 0.0-0. 6 Not Available [facility] (Lab) [address], [place], [address], 09/23/2022 04:48:05 09/23/19 23 09/22/2022 CBC W/DIF F absolute basophils 0.1 10'3/ uL 0.0-0. 1 Not Available [facility] (Lab) [address], [place], [address], 09/23/2022 04:48:05 09/23/19 23 09/22/2022 CBC W/DIF F absolute immature granulocytes 0.1 10'3/ uL 0.00-0 .10 2022 3:45 AM: P indic ates parti al resul ts on a panel have been relea sed. Addit ional resul ts will follo w. 2022 3:45 AM: This resul t has been final verif ied. No addit ional or thomas ed resul ts are expec radha. 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 Elect leonardo adan rodolfo d by Leda Cheema ica on 2022 at 12:36 PM ----- ----- ----- ----- ----- ----- ----- ----- ----- ----- ----- ----- ----- ----- ----- ----- ----- ---- HPV RESUL TS: HPV mRNA E6/E7 : No HPV mRNA Detec radha NOTE: This high risk HPV mRNA assay detec ts fourt een high- risk HPV types (16, 18, 31, 33, 35, 39, 45, 51, 52, 56, 58, 59, 66, 68) witho ut diffe renti ation . COMME NT: This speci men was revie wed by a Cytot echno logis t and/o r Patho logis t (as indic ated in this repor t) after evalu ation using the Thinp rep Imagi ng Syste m. CLINI AN INFOR MATIO N: Menst rual Statu s: LMP (if appli cable ): Clini an Histo ry/Pr eviou s Pap: Type of Neopl mariana (if appli cable ): Signi fican t Clini an Findi ngs: Other Histo ry: Hormo yesica (if appli cable ): PAP EDUCA KANDACE L NOTE: The Pap Test is a scree deepak test with an inher ent false negat ivis rate. Liqui d-bas ed sampl ing may decre ase, but will not elimi anderson, false negat ivis resul ts. A negat ivis resul t does not precl ude the prese nce and/o r devel opmen t of disea se, since the prese nce of abnor mal cells in the sampl e depen ds on the locat ion of the lesio n and sampl ing techn ique. Vishnu nued regul ar scree deepak is the best metho d of cance r preve ntion . If repor radha cytol ogic findi ng do not corre late with physi an and/o r histo rical findi ngs, furth er inves tigat ion is recom teetee d, as clini orlando griffith nted. Not Available [facility] (Lab) [address], [place], [address], 09/27/2022 13:38:57 09/23/19 23 09/22/2022 TRICH OMONA S VAGIN MUNIR (RRNA ) trichomonas vaginalis ribosomal RNA (rrna) Negati ve negati ve Not Available [facility] (Lab) [address], [place], [address], 09/27/2022 13:38:58 09/23/19 23 09/22/2022 CT/GC (ISA) , THINP REP VIAL chlamydia trachomatis, PCR Negati ve negati ve Not Available [facility] (Lab) [address], [place], [address], 09/27/2022 13:38:58 09/23/19 23 09/22/2022 CT/GC (ISA) , THINP REP VIAL neisseria gonorrhoeae, PCR Negati ve negati ve Not Available [facility] (Lab) [address], [place], [address], 09/27/2022 13:38:58 09/15/19 23 09/14/2022 US, pelvi s No observ ation record ed. [email or web address] [facility] [address], [place], [address], 09/14/2022 11:38:55 09/15/19 23 09/14/2022 US, trans vagin al No observ ation record ed. [email or web address] [facility] [address], [place], [address], 09/14/2022 11:38:37 09/15/19 23 09/14/2022 US, pelvi s No observ ation record ed. [email or web address] [address] [address], [place], [address], 09/20/2022 15:05:09 12/06/19 23 12/03/2022 MAMMO , scree deepak, bilat eral No observ ation record ed. [email or web address] [facility] [address], [place], [address], 12/06/2022 14:31:17 12/06/19 23 12/03/2022 MAMMO , scree deepak, bilat eral No observ ation record ed. [email or web address] [facility] [address], [place], [address], 12/13/2022 10:44:30 12/08/19 23 07/17/2020 imagi ng/di agnos tic resul t No observ ation record ed. [address], [address], 12/08/2022 10:05:28 12/28/19 23 12/03/2022 MAMMO , scree deepak, bilat eral No observ ation record ed. [facility] [address], [place], [address], 12/27/2022 19:04:44 12/28/19 23 12/03/2022 MAMMO , scree deepak, bilat eral No observ ation record ed. [facility] [address], [place], [address], 12/30/2022 14:49:06 05/06/19 25 05/06/2024 MAMMO , scree deepak, bilat eral No observ ation record ed. [email or web address] [place] [address] [address], [place], [address], 05/07/2024 17:29:22 05/07/19 25 05/06/2024 MAMMO , scree deepak, bilat eral No observ ation record ed. [facility] [address], [place], [address], 05/07/2024 17:33:47 05/08/19 25 05/06/2024 MAMMO , scree deepak, bilat eral No observ ation record ed. [facility] [address], [place], [address], 05/09/2024 10:21:28 05/23/19 25 05/23/2024 MAMMO , diagn ostic , tomos ynthe sis, unila teral No observ ation record ed. [address], [place], [address], 05/23/2024 15:58:07 05/23/19 25 05/23/2024 MAMMO , diagn ostic , tomos ynthe sis, unila teral No observ ation record ed. [address], [place], [address], 05/23/2024 16:00:01 05/23/19 25 05/23/2024 MAMMO , diagn ostic , tomos ynthe sis, unila teral No observ ation record ed. [address], [place], [address], 05/23/2024 16:00:28 Result Notes None recorded. Problems Name Problem SNOMED Code Status Onset Date Resolution Date Notes Provider Name and Address Organization Details Recorded Time Insertion of intrauterin e contracepti ve device Active 2017 INSERTION OF IUD;Record ed Elsewhere: No Locatio n: [facility] Stella Krista rce: EHR Chroni c: N Practice ID: [id number] Billa ble Time: 09:30:00 AM Not Available [facility] 22:02:45 Problem Notes None recorded. Procedures Surgical History Date Name Laterality Status Provider Name and Address Organization Details Recorded Time 05/06/19 25 Date of Last Mammogram completed Loly Escalante [facility] 05/07/2024 09:21:05 09/23/19 23 Date of Last Pap Smear completed Debra Roy [facility] 05/02/2024 10:01:20 09/21/19 18 Hysteroscopy completed Debrarayo Roy [facility] 05/02/2024 09:56:18 [facility] 10:15:04 cholecystectomy completed [facility] 05/02/2024 09:58:45 Imaging Results Imaging Date Name Status LastModified by Organization Details LastModified Time 09/14/2022 US, pelvis completed [email or web address] [facility] [address], [place], [address], 09/14/2022 11:38:55 09/14/2022 US, transvaginal completed [email or web address] [facility] [address], [place], [address], 09/14/2022 11:38:37 09/14/2022 US, pelvis completed [email or web address] [address], [place], [address], 09/20/2022 15:05:09 12/03/2022 MAMMO, screening, bilateral completed [email or web address] [facility] [address], [place], [address], 12/06/2022 14:31:17 12/03/2022 MAMMO, screening, bilateral completed [email or web address] [facility] [address], [place], [address], 12/13/2022 10:44:30 07/17/2020 imaging/diagnost ic result completed [address], [place], [address], 12/08/2022 10:05:28 12/03/2022 MAMMO, screening, bilateral completed [facility] [address], [place], [address], 12/27/2022 19:04:44 12/03/2022 MAMMO, screening, bilateral completed [facility] [address], [place], [address], 12/30/2022 14:49:06 05/06/2024 MAMMO, screening, bilateral completed [facility] [address], [place], [address], 05/07/2024 17:29:22 05/06/2024 MAMMO, screening, bilateral completed [facility] [address], [place], [address], 05/07/2024 17:33:47 05/06/2024 MAMMO, screening, bilateral completed [facility] [address], [place], [address], 05/09/2024 10:21:28 05/23/2024 MAMMO, diagnostic, tomosynthesis, unilateral completed [email or web address] [facility] [address], [place], [address], 05/23/2024 15:58:07 05/23/2024 MAMMO, diagnostic, tomosynthesis, unilateral completed [email or web address] [facility] [address], [place], [address], 05/23/2024 16:00:01 05/23/2024 MAMMO, diagnostic, tomosynthesis, unilateral completed [email or web address] [facility] [address], [place], [address], 05/23/2024 16:00:28 Procedure Notes None recorded. Medical Equipment None Reported. Allergies No known drug allergies Medications Name Sig Start Date Stop Date Status Note LastModified by Organization Details LastModified Time flowflex kit test 09/13 completed Not Available Not Available Not Available amoxicill in 500 mg capsule TAKE 1 CAPSULE BY MOUTH THREE TIMES DAILY FOR 7 DAYS 09/13 completed Not Available Not Available Not Available Mirena 21 mcg/24 hr (up to 8 years) 52 mg intrauter ine device active Prescrib ed Elsewher e: Yes Loca tion: [facility] odify By: [email or web address] z Encoun ter DateTime : 10/04/19 18 09:30:00 AM Not Available Not Available Not Available Depo-Prov era 150 mg/mL intramusc ular suspensio n inject 1 millilit er by intramus cular route every 3 months 09/13 completed Prescrib ed Elsewher e: No Locat ion: [facility] odify By: benita tz Encou nter DateTime : 01/24/20 18 08:30:00 AM Not Available Not Available Not Available gentamici n 0.1 % topical cream APPLY A SMALL AMOUNT TO THE AFFECTED AREA ON TOE ULCER THREE TIMES DAILY 05/04 completed Not Available Not Available Not Available methylpre dnisolone 4 mg tablets in a dose pack FOLLOW PACKAGE DIRECTIO NS 05/04 completed Not Available Not Available Not Available albuterol sulfate HFA 90 mcg/actua tion aerosol inhaler INHALE 2 PUFFS BY MOUTH FOUR TIMES DAILY active Not Available Not Available No t Available amoxicill in 875 mg-potass ium clavulana te 125 mg tablet TAKE 1 TABLET BY MOUTH EVERY 12 HOURS 05/04 completed Not Available Not Available Not Available magnesium active Not Available Not Jennyfer ilable Not Available vitamin B complex active Not Available Not Available Not Available Vitamin D active Not Available Not Jennyfer ilable Not Available turmeric 100 mg-med 150 mg-olive 50 mg-oreg 150 mg-capryl capsule Take by oral route. active Not Available Not Available No t Available Flowflex COVID-19 Antigen Home Test kit use as directed on package FOR AT home CoVID testing NEEDED 09/13 completed Not Available Not Available Not Available Vitals Date Recorded Body height Body mass index (BMI) Body weight Provider Name and Address Organization Details Last Updated DateTime 09/13/2022 160.02 cm 38.6 kg/m2 98633.14 g Michelle Sanders [facility] 09/13/2022 09:26:12 Date Recorded Systolic blood pressure Diastolic blood pressure Provider Name and Address Organization Details Last Updated DateTime 09/13/2022 132 mm[Hg] 80 mm[Hg] Susan Govea, [facility] [address], [place], [address], [facility] 09/13/2022 09:39:44 Date Recorded Body height Body mass index (BMI) Body weight Provider Name and Address Organization Details Last Updated DateTime 09/22/2022 160.02 cm 39 kg/m2 27402.32 g Michelle Sanders [facility] 09/22/2022 10:11:48 Date Recorded Systolic blood pressure Diastolic blood pressure Provider Name and Address Organization Details Last Updated DateTime 09/22/2022 126 mm[Hg] 80 mm[Hg] Susan Govea [facility] [address], [place], [address], [facility] 09/22/2022 10:30:08 Date Recorded Body weight Systolic blood pressure Diastolic blood pressure Provider Name and Address Organization Details Last Updated DateTime 05/07/2024 661780.92 g 128 mm[Hg] 84 mm[Hg] Loly Khanton [facility] 05/07/2024 09:20:22 Social History Question Answer Notes LastModified by Organizat ion Details LastModified Time Tobacco Smoking Status Current Every Day Smoker Michelle tatum, [facility] 09/22/2022 10:12:06 Do You Have An Advance Directive? No Information not available 09/22/2022 What Is Your Level Of Alcohol Consumption? Occasional Information not available 09/13/2022 How Many Years Have You Consumed Alcohol? 22 Information not available 09/22/2022 Are You Blind Or Do You Have Difficulty Seeing? No Information not available 09/13/2022 What Is Your Level Of Caffeine Consumption? Moderate Information not available 09/13/2022 How Much Tobacco Do You Chew? None Information not available 09/22/2022 In The 14 Days Before Symptom Onset, Have You Had Close Contact With A Laboratory-confir med COVID-19 While That Case Was Ill? No Information not available 09/13/2022 In The 14 Days Before Symptom Onset, Have You Had Close Contact With A Person Who Is Under Investigation For COVID-19 While That Person Was Ill? No Information not available 09/13/2022 Have You Been To An Area Known To Be High Risk For COVID-19? No Information not available 09/13/2022 Are You Deaf Or Do You Have Serious Difficulty Hearing? No Information not available 09/13/2022 What Type Of Diet Are You Following? REGULAR Information not available 09/13/2022 What Is The Highest Grade Or Level Of School You Have Completed Or The Highest Degree You Have Received? 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 No Information not available 09/13/2022 Do You Use Protection During Sex? No Information not available 09/13/2022 Do You Use Your Seat Belt Or Car Seat Routinely? Yes Information not available 09/13/2022 Do You Have Smoke And Carbon Monoxide Detectors In Your Home? Yes Information not available 09/13/2022 At What Age Did You Start Smoking Tobacco? 15 Information not available 09/22/2022 How Much Tobacco Do You Smoke? 1 PPD Information not available 09/13/2022 Do You Feel Stressed (tense, Restless, Nervous, Or Anxious, Or Unable To Sleep At Night)? [id number] Information not available 09/22/2022 Do You Use Any Illicit Or Recreational Drugs? No Information not available 09/13/2022 Do You Use Sunscreen Routinely? Yes Information not available 09/13/2022 How Many Years Have You Smoked Tobacco? 25 Information not available 09/22/2022 Have You Used IV Drugs? No Information not available 09/13/2022 Sex: Unknown Functional Status Question Answer Note LastModified by Organization D etails LastModified Time Are you able to walk? YESWOREST Information not available 09/13/2022 What is your exercise level? Moderate Information not available 09/13/2022 Mental Status None recorded. Family History Relationship Description Onset Age of this Age Resolved Age Notes LastModified by Organization Details LastModified Time Father No current problems or disability Not available 09/13 09:28:49 Mother No current problems or disability Not available 09/13 09:28:49 Medical History Condition Response Allergies (Food, seasonal, environmental ) Y Other Y Drug/Latex Allergies/Reactions N Blood Transfusion N Breast Cancer N Dermatologic Disorders N Lung Disease N Defects or Inherited Disease N Breast Problem N Gestational Diabetes N Hematologic disorders N Anesthesia Complications N History of STI N Deep Vein Thrombosis N Polycystic ovary syndrome N
--- OUTSIDE RECORDS SUMMARY | 2024-07-11 00:10 | XMS_ITS | Data Portability ---
Author Organization [facility], Main Office Address [address] [place] [address] Assessment No assessment recorded. Plan of Treatment Reminders Order Date Submit Date Provider Last Modified By Organization Details Last Modified Time Details Appointments None recorded. Lab lipid panel, serum [address] (Lab), [address] [place], [address], 4 08:26:50 CMP, serum or plasma [address] (Lab), [address] [place], [address], 4 08:26:50 vitamin D, 25-hydroxy, total, serum [address] (Lab), [address] [place], [address], 4 08:26:50 Referral None recorded. Procedures None recorded. Surgeries None recorded. Imaging XR, toe(s), 2 or more view 2023 024 [email or web address] [facility] [place], [facility], [address], [place], [address], 4 10:29:12 Medication Orders Augmentin 875 mg-125 mg tablet 2023 024 [email or web address] [facility][id number], [address] [place], [place], [id number], 4 09:06:01 Medrol (Unruly) 4 mg tablets in a dose pack 2023 024 [email or web address] [facility] #[id number], [address] [place], [place], [id number], 4 09:06:10 gentamicin 0.1 % topical cream 2023 024 ALL [facility] #[id number], [address] [place], [place], [id number], 4 09:37:40 Patient TargetsNo targets recorded. Patient InstructionsNo instructions recorded. Reason for Referral None Reported. Results Created Date Observation Date Name Description Value Unit Range Abnormal Flag Note LastModifiedBy Organization Detail LastModifiedTime 09/28/19 23 09/27/2022 CBC W/O DIFFE RENTI AL white blood cells 11.1 x10'3 /uL 4.2-10 .8 high Not Available [facility] (Lab) [address] [place], [address], 09/27/2022 20:47:38 09/28/19 23 09/27/2022 CBC W/O DIFFE RENTI AL red blood cells 4.87 x10'6 /uL 3.80-5 .20 Not Available [facility] (Lab) [address] [place], [address], 09/27/2022 20:47:38 09/28/19 23 09/27/2022 CBC W/O DIFFE RENTI AL hemoglobin 15.6 g/dL 12.0-1 5.6 Not Available [facility] (Lab) [address] [place], [address], 09/27/2022 20:47:38 09/28/19 23 09/27/2022 CBC W/O DIFFE RENTI AL hematocrit 49.1 % 35.7-4 5.7 high Not Available [facility] (Lab) [address] [facility] [place], [address], 09/27/2022 20:47:38 09/28/19 23 09/27/2022 CBC W/O DIFFE RENTI AL mean red cell volume 100.8 fL 82.0-9 9.0 high Not Available [facility] (Lab) [address] [facility] [place], [address], 09/27/2022 20:47:38 09/28/19 23 09/27/2022 CBC W/O DIFFE RENTI AL mean red cell hemoglobin 32.0 pg 27.0-3 3.0 Not Available [facility] (Lab) [address] [place], [address], 09/27/2022 20:47:38 09/28/19 23 09/27/2022 CBC W/O DIFFE RENTI AL mean RBC HGB concentratio n 31.8 g/dL 31.0-3 6.0 Not Available [facility] (Lab) [address] [place], [address], 09/27/2022 20:47:38 09/28/19 23 09/27/2022 CBC W/O DIFFE RENTI AL red cell distribution width 12.9 % 11.8-1 5.5 Not Available [facility] (Lab) [address] [place], [address], 09/27/2022 20:47:38 09/28/19 23 09/27/2022 CBC W/O DIFFE RENTI AL platelets 347 x10'3 /uL 150-40 0 Not Available [facility] (Lab) [address] [place], [address], 09/27/2022 20:47:38 09/28/19 23 09/27/2022 CBC W/O DIFFE RENTI AL mean platelet volume 11.4 fL 9.0-12 .4 Not Available [facility] (Lab) [address] [place], [address], 09/27/2022 20:47:38 09/28/19 23 09/27/2022 FOLAT E, SERUM /PLAS MA folate 6.96 NG/mL 2.76-2 0.0 Not Available [facility] (Lab) [address] [place], [address], 09/27/2022 22:40:48 09/28/19 23 09/27/2022 COMPR EHENS IVIS METAB OLIC PANEL sodium 137 mmol/ L 137-14 5 Not Available [facility] (Lab) [address] [place], [address], 09/27/2022 21:21:38 09/28/19 23 09/27/2022 COMPR EHENS IVIS METAB OLIC PANEL potassium 4.4 mmol/ L 3.5-5. 1 Not Available [facility] (Lab) [address] [place], [address], 09/27/2022 21:21:38 09/28/19 23 09/27/2022 COMPR EHENS IVIS METAB OLIC PANEL chloride 101 mmol/ L 98-107 Not Available [facility] (Lab) [address] [place], [address], 09/27/2022 21:21:38 09/28/19 23 09/27/2022 COMPR EHENS IVIS METAB OLIC PANEL carbon dioxide 25 mmol/ L 22-30 Not Available [facility] (Lab) [address] [place], [address], 09/27/2022 21:21:38 09/28/19 23 09/27/2022 COMPR EHENS IVIS METAB OLIC PANEL anion gap 15.4 mmol/ L 14-22 Not Available [facility] (Lab) [address] [place], [address], 09/27/2022 21:21:38 09/28/19 23 09/27/2022 COMPR EHENS IVIS METAB OLIC PANEL glucose 94 mg/dL 70-99 Not Available [facility] (Lab) [address] [place], [address], 09/27/2022 21:21:38 09/28/19 23 09/27/2022 COMPR EHENS IVIS METAB OLIC PANEL BUN 9 mg/dL 8-19 Not Available [facility] (Lab) [address] [place], [address], 09/27/2022 21:21:38 09/28/19 23 09/27/2022 COMPR EHENS IVIS METAB OLIC PANEL creatinine 0.79 mg/dL 0.66-1 .25 Not Available [facility] (Lab) [address] [place], [address], 09/27/2022 21:21:38 09/28/19 23 09/27/2022 COMPR EHENS IVIS METAB OLIC PANEL GFR >60 Refer ence Range : [place] ge GFR Healt hy Adult : >60 mL/mi n/1.7 3 m2 Chron ic Kidne y Disea se: 15-60 mL/mi n/1.7 3 m2 Kidne y Failu re: <15/m L/min /1.73 m2 www.n iddk. nih.g ov The MDRD study equat ion has not been valid ated in child madai <18 years of age; pregn ant women ; the elder ly >85 years of age; or in some racia l or ethni c subgr oups, such as Hispa nics. Outsi de the valid ated raphael eters , estim ated GFR is less accur ate, requi ring clini an judgm ent on a case- by-ca se basis . Clini an inter preta tion for other races and ages must be made by the clini gray. The MDRD study equat ion has not been valid ated for the evalu ation of serum creat inine relat ed to nutri kirby l statu s or medic ation usage . For perso ns <18 years of age, a pedia tric GFR calcu lator is avail able on the [facility] websi te: https ://fausto torres.hayley hodge/jacqueline fofanaal s/kdo qi/gf r_cal culat or Not Available [facility] (Lab) [address] [place], [address], 09/27/2022 21:21:38 09/28/19 23 09/27/2022 COMPR EHENS IVIS METAB OLIC PANEL alkaline phosphatase 45 U/L 38-126 Not Available [facility] (Lab) [address] [place], [address], 09/27/2022 21:21:38 09/28/19 23 09/27/2022 COMPR EHENS IVIS METAB OLIC PANEL alanine aminotransfe rase 26 U/L 0-35 Not Available [facility] (Lab) [address] [place], [address], 09/27/2022 21:21:38 09/28/19 23 09/27/2022 COMPR EHENS IVIS METAB OLIC PANEL aspartate aminotransfe rase 32 U/L 15-37 Not Available [facility] (Lab) [address] [place], [address], 09/27/2022 21:21:38 09/28/19 23 09/27/2022 COMPR EHENS IVIS METAB OLIC PANEL bilirubin, total 0.50 mg/dL 0.20-1 .30 Not Available [facility] (Lab) [address] [place], [address], 09/27/2022 21:21:38 09/28/19 23 09/27/2022 COMPR EHENS IVIS METAB OLIC PANEL calcium 8.9 mg/dL 8.4-10 .2 Not Available [facility] (Lab) [address] [place], [address], 09/27/2022 21:21:38 09/28/19 23 09/27/2022 COMPR EHENS IVIS METAB OLIC PANEL total protein 6.8 g/dL 6.3-8. 2 Not Available [facility] (Lab) [address] [place], [address], 09/27/2022 21:21:38 09/28/19 23 09/27/2022 COMPR EHENS IVIS METAB OLIC PANEL albumin 3.8 g/dL 3.4-5. 0 Not Available [facility] (Lab) [address] [place], [address], 09/27/2022 21:21:38 09/28/19 23 09/27/2022 COMPR EHENS IVIS METAB OLIC PANEL globulin 3.0 g/dL 2.6-4. 2 Not Available [facility] (Lab) [address] [place], [address], 09/27/2022 21:21:38 09/28/19 23 09/27/2022 COMPR EHENS IVIS METAB OLIC PANEL A/G ratio 1.3 ratio 1.0-2. 0 Not Available [facility] (Lab) [address] [place], [address], 09/27/2022 21:21:38 09/28/19 23 09/27/2022 CAROL TIN ferritin 38 NG/mL 6.24-1 37 Not Available [facility] (Lab) [address] [place], [address], 09/27/2022 21:39:44 09/28/19 23 09/27/2022 IRON/ TIBC PANEL total iron binding capacity 365 mcg/d L 265-47 5 Not Available [facility] (Lab) [address] [place], [address], 09/27/2022 23:17:37 09/28/19 23 09/27/2022 IRON/ TIBC PANEL % transferrin saturation 28 % 20-55 Not Available [facility] (Lab) [address] [place], [address], 09/27/2022 23:17:37 09/28/19 23 09/27/2022 IRON/ TIBC PANEL unsaturated iron bind capacity 261 mcg/d L 126-38 2 Not Available [facility] (Lab) [address] [place], [address], 09/27/2022 23:17:37 09/28/19 23 09/27/2022 IRON/ TIBC PANEL iron 104 mcg/d L 42-175 Not Available [facility] (Lab) [address] [place], [address], 09/27/2022 23:17:37 12/06/19 23 12/03/2022 MAMMO , scree deepak, digit al, bilat eral No observ ation record ed. Not Available 11/10 13:00:33 05/25/19 24 XR, toe(s ), 2 or more view No observ ation record ed. [email or web address] [facility] [place] [address] [facility], [address], [place], [address], 05/25/2023 09:40:43 Result Notes None recorded. Problems Name Problem SNOMED Code Status Onset Date Resolution Date Notes Provider Name and Address Organization Details Recorded Time Anemia 985857435 Active 2022 Mary Mcfadden CMA null, [employer] [facility] [employer] 3 13:41:31 Laborator y test result abnormal 556199740 Active 2022 Xavier Saucedo MD [address] [facility], [address], [place], [address] , [facility] [employer] [facility] [employer] 3 11:27:16 Acute bronchiti s 95672095 Completed Not Available [employer] 3 03:16:31 Paronychi a of toe of left foot 56712202656 679916 Completed 202001/20/2022 Not Available [employer] 3 03:16:31 Leukocyto sis 622829040 Active 2017 Not Available [facility] 3 03:16:31 Post-acut e COVID-19 1203551119 Completed 202101/20/2022 Not Available [facility] 3 03:16:31 Acute sinusitis 18310830 Completed 202101/20/2022 Corry Armstrong, [employer] [address] [facility], [address], [place], [address] , [facility] 4 12:42:06 Abdominal wall pain 044038200 Active 2021 Not Available [facility] 3 03:16:31 Gastroent eritis 90720297 Active Not Available [facility] 3 03:16:31 Injury of great toenail 135314238 Completed 201901/20/2022 Not Available [facility] 3 03:16:31 Finding of body mass index 620467347 Active 2021 Not Available [facility] 3 03:16:31 Hypertrig lyceridem ia 881861584 Active 2017 Not Available [facility] 3 03:16:31 Otitis externa 9217407 Completed Not Available [facility] 3 03:16:31 Vitamin D deficienc y 58031907 Active 2017 Not Available [facility] 3 03:16:31 Onychomyc osis of toenails 463143278 Completed 201901/20/2022 Not Available [facility] 3 03:16:31 Obesity 569721059 Active 2019 Not Available [facility] 3 03:16:32 Sinus bradycard ia 55682694 Active Not Available [facility] 3 03:16:32 Upper respirato ry infection 72696990 Completed Not Available [facility] 3 03:16:32 Celluliti s of toe 39801905 Completed 202001/20/2022 Not Available [facility] 3 03:16:32 Celluliti s of toe 89433768 Completed 202001/20/2022 Not Available [facility] 3 03:16:32 Smoker 44359913 Active 2020 Not Available [facility] 3 03:16:32 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 Procedures Surgical History Date Name Laterality Status Provider Name and Address Organization Details Recorded Time 05/09/19 24 Total Nail Avulsion with Chemical Matrixectomy-left completed Izaiah Shah DPM [address], [address], [place], [address], [email or web address] 05/09/2023 15:44:27 Orthopedic Surgery completed Not Available [facility] 06/08/2022 03:08:08 Cholecystectomy completed Not Available [facility] 06/08/2022 03:08:08 Tubal Ligation completed Not Available [facility] 06/08/2022 03:08:08 Imaging Results Imaging Date Name Status LastModified by [facility] Details LastModified Time 12/03/2022 MAMMO, screening, digital, bilateral completed Information not available 12/07/2022 13:00:33 05/25/2023 XR, toe(s), 2 or more view completed [email or web address] [facility] [place] [address], [address], [place], [address], 05/25/2023 09:40:43 Procedure Notes None recorded. Medical Equipment None Reported. Allergies Allergen ID Allergen Name Allergen Category Reaction Reaction Severity Criticality Documentation Date Start Date Code Code System Note Provider Name and Address Organization Details Recorded Time 5811 fenofibra te medicatio n Not available Not available Not available 06/08/2022 8703 RxNorm stoma ch cramp s Not Available [facility] 03:25:46 Medications Name Sig Start Date Stop Date Status Note LastModified by Organization Details LastModified Time amoxicillin 500 mg capsule Take 1 capsule 3 times a day by oral route for 7 days. active Not Available Not Available No t Available neomycin-po lymyxin-hyd rocort 3.5 mg/mL-10,00 0 unit/mL-1 % ear solution INSTILL 2 DROPS INTO AFFECTED EAR(S) BY OTIC ROUTE 4 TIMES PER DAY active Not Available Not Available No t Available doxycycline hyclate 100 mg capsule Take 1 capsule twice a day by oral route for 7 days. active Not Available Not Available No t Available azithromyci n 250 mg tablet 2 tabs po qd x 1 day then 1 tab po qd x 4 days active Not Available Not Available No t Available ibuprofen 800 mg tablet Take 1 tablet 3 times a day by oral route. active Not Available Not Available No t Available fluconazole 150 mg tablet active Not Available Not Available Not Available benzonatate 200 mg capsule 07/09 completed Not Available Not Available Not Available hydrocodone 5 mg-acetamin ophen 325 mg tablet Take 1 tablet 3 times a day by oral route as needed. 07/31 completed Not Available Not Available Not Available penicillin V potassium 500 mg tablet 07/31 completed Not Available Not Available Not Available acyclovir 800 mg tablet active Not Available Not Available Not Available ciprofloxac in 0.3 % eye drops INSTILL 1 DROP INTO AFFECTED EYES Q 2 H WHILE AWAKE FOR 2 DAYS THEN INT 1 DROP Q 4 H WHILE AWAKE FOR 5 DAYS active Not Available Not Available No t Available gentamicin 0.1 % topical cream APPLY A SMALL AMOUNT TO THE AFFECTED AREA ON TOE ULCER THREE TIMES DAILY active Not Available Not Available No t Available mupirocin 2 % topical ointment APPLY A SMALL AMOUNT TO THE AFFECTED AREA OF RIGHT TOE THREE TIMES DAILY 05/25 completed Not Available Not Available Not Available ergocalcife rol (vitamin D2) 1,250 mcg (50,000 unit) capsule TAKE 1 CAPSULE BY MOUTH EVERY WEEK 01/08 completed Not Available Not Available Not Available methylpredn isolone 4 mg tablets in a dose pack FOLLOW PACKAGE DIRECTION S 09/11 completed Not Available Not Available Not Available albuterol sulfate HFA 90 mcg/actuati on aerosol inhaler INHALE 2 PUFFS BY MOUTH FOUR TIMES DAILY active Not Available Not Available No t Available ketoconazol e 2 % topical cream SRI TO RIGHT GREAT TOENAIL QD active Not Available Not Available No t Available metoclopram diana 10 mg tablet TK 1 T PO QID PRN active Not Available Not Available No t Available amoxicillin 875 mg-potassiu m clavulanate 125 mg tablet TAKE 1 TABLET BY MOUTH EVERY 12 HOURS 09/11 completed Not Available Not Available Not Available amoxicillin 500 mg-potassiu m clavulanate 125 mg tablet TAKE 1 TABLET BY MOUTH EVERY 12 HOURS FOR 10 DAYS DIRECTED 07/23 completed Not Available Not Available Not Available medroxyprog esterone 150 mg/mL intramuscul ar syringe 09/17 completed Not Available Not Available Not Available Vitamin D3 25 mcg (1,000 unit) tablet Take 1 tablet every day by oral route. 10/29 completed Not Available Not Available Not Available cyclobenzap rine 5 mg tablet active Not Available Not Available Not Available fenofibrate 160 mg tablet Take 1 tablet every day by oral route. active Not Available Not Available No t Available Vitamin D3 2,000u daily OTC 2020 active Not Available Not Available Not Avai lable Afluria Quad (PF) 60 mcg (15 mcg x 4)/0.5 mL IM syringe active Not Available Not Available N ot Available Fluarix Quad (PF) 60 mcg (15 mcg x 4)/0.5 mL IM syringe ADM 0.5ML IM UTD active Not Available Not Available No t Available Fluarix Quad (PF) 60 mcg (15 mcg x 4)/0.5 mL IM syringe ADM 0.5ML IM UTD 03/03 completed Not Available Not Available Not Available [employer] COVID-19 Antigen Home Test kit use as directed on package FOR AT home CoVID testing NEEDED 09/11 completed Not Available Not Available Not Available Vitals Date Recorded Body height Body mass index (BMI) Body weight Body temperature Heart rate Oxygen saturation Oxygen saturation in Arterial blood by Pulse oximetry Systolic blood pressure Diastolic blood pressure Provider Name and Address Organization Details Last Updated DateTime 3 157.48 cm 39.1 kg/m2 94284.7 7 g 97.4 [degF] 82 /min 97 % 97 % 118 mm[Hg] 72 mm[Hg] CORRINA Dorado [facility] [employer] [facility] 3 11:06:43 Date Recorded Body height Body mass index (BMI) Body weight Heart rate Respiratory rate Oxygen saturation Oxygen saturation in Arterial blood by Pulse oximetry Systolic blood pressure Diastolic blood pressure Provider Name and Address Organization Details Last Updated DateTime 4 157.48 cm 39.1 kg/m2 86309.7 7 g 80 /min 14 /min 99 % 99 % 117 mm[Hg] 75 mm[Hg] Alpa Ulloa [employer] [facility] [employer] [facility] 4 14:40:42 Date Recorded Body height Body mass index (BMI) Body weight Heart rate Respiratory rate Oxygen saturation Oxygen saturation in Arterial blood by Pulse oximetry Systolic blood pressure Diastolic blood pressure Provider Name and Address Organization Details Last Updated DateTime 4 157.48 cm 39.1 kg/m2 28027.7 7 g 97 /min 14 /min 99 % 99 % 113 mm[Hg] 71 mm[Hg] Alpa Ulloa [employer] [facility] [employer] [facility] 4 09:20:14 Date Recorded Body height Body mass index (BMI) Body weight Body temperature Heart rate Respiratory rate Oxygen saturation Oxygen saturation in Arterial blood by Pulse oximetry Systolic blood pressure Diastolic blood pressure Provider Name and Address Organization Details Last Updated DateTime 4 157.48 cm 42.1 kg/m2 021142. 25 g 97.4 [degF] 84 /min 16 /min 98 % 98 % 122 mm[Hg] 76 mm[Hg] Melyssa Serrano MA [employer] 12:30:56 Date Recorded Body height Body mass index (BMI) Body weight Body temperature Heart rate Oxygen saturation Oxygen saturation in Arterial blood by Pulse oximetry Systolic blood pressure Diastolic blood pressure Provider Name and Address Organization Details Last Updated DateTime 157.48 cm 42.4 kg/m2 469860. 43 g 97.5 [degF] 67 /min 96 % 96 % 120 mm[Hg] 68 mm[Hg] CORRINA Dorado [employer] 09:08:06 Social History Question Answer Notes LastModified by Subtext Details LastModified Time Tobacco Smoking Status Former Smoker 2011 [facility] Available [facility] 06/08/2022 03:06:07 What Is Your Level Of Alcohol Consumption? Occasional [id number] Information not available 06/08/2022 What Is Your Level Of Caffeine Consumption? Moderate [id number] Information not available 06/08/2022 In The 14 Days Before Symptom Onset, Have You Had Close Contact With A Laboratory-confir med COVID-19 While That Case Was Ill? No [id number] Information not available 06/08/2022 In The 14 Days Before Symptom Onset, Have You Had Close Contact With A Person Who Is Under Investigation For COVID-19 While That Person Was Ill? No [id number] Information not available 06/08/2022 What Is Your Occupation? [employer] [id number] Information not available 06/08/2022 At What Age Did You Start Smoking Tobacco? 13 [id number] Information not available 06/08/2022 Sex: Unknown Functional Status None recorded. Mental Status None recorded. Family History Relationship Description Onset Age of this Age Resolved Age Notes LastModified by Organization Details LastModified Time Father No current problems or disability [id number] Not available 06/08/2022 03:08:15 Mother No current problems or disability [id number] Not available 06/08/2022 03:08:15 Notes:None Medical History No medical history recorded. Gynecological HistoryNo gynecological history recorded. Obstetrics History GPAL:G 0 P 0 0 0 0 Immunizations Vaccine Type Date Status Note Provider Nam e and Address Organization Details Recorded Time SARS-COV-2 (COVID-19) vaccine, UNSPECIFIED 1 completed Not Available [facility] 06/08/2022 03:25:37 SARS-COV-2 (COVID-19) vaccine, UNSPECIFIED 1 completed Not Available [facility] 06/08/2022 03:25:37 Influenza, split virus, quadrivalent, preservative 0 completed Not Available [facility] 06/08/2022 03:25:37 Influenza, split virus, quadrivalent, preservative 9 completed Not Available [facility] 06/08/2022 03:25:37 Hep A, adult 6 completed Not Available [facility] 06/08/2022 03:25:37 Past Encounters Encounter ID Performer Location Encounter Start Date Encounter Closed Date Diagnosis/Indication Diagnosis SNOMED-CT Code Diagnosis ICD10 Code Diagnosis Note [id number] [facility] [address] [place] [address] 07/09/2020 00:00:00 07/09/2020 13:15:59 [id number] [facility] [place] [address] [facility], [address] [address] 11/09/2020 00:00:00 11/09/2020 14:18:02 [id number] [facility] [place] [address], [address] [address] 11/23/2020 00:00:00 11/23/2020 12:32:48 [id number] [facility] [place] [address] [facility], [address] [address] 12/17/2020 00:00:00 12/17/2020 13:36:09 [id number] [facility] [place] [address] [facility], [address] [address] 12/31/2020 00:00:00 12/31/2020 13:19:35 [id number] [facility] [address] [place] [address] 01/08/2021 00:00:00 01/08/2021 10:28:28 [id number] [facility] [place] [address], [address] [place] [address] 01/14/2021 00:00:00 01/14/2021 09:27:21 [id number] [facility] [place] [address], [address] [place] [address] 01/21/2021 00:00:00 01/21/2021 09:48:36 [id number] [facility] [address] [place] [address] 07/23/2021 00:00:00 07/23/2021 13:12:22 [id number] [facility] [address] [facility]. [place] [address] 03/07/2022 00:00:00 03/07/2022 10:38:06 [id number] Xavier Saucedo MD [facility] [address] [facility] [place] [address] 09/30/2022 11:01:56 09/30/2022 11:25:43 Laboratory test result abnormal [id number] R89.9 mild abnormalit y could be related to smoking, watch, quit smoking, labs in 6 months Obesity 867270016 E66.9 rec to go to weight loss clinic [id number] Izaiah Shah DPM [facility] [place] [address] [place] [address], [address] [place] [address] 05/09/2023 14:30:34 05/09/2023 15:59:15 Avulsion of toenail of left foot [id number] S91.215A left secondafte r review of options patient elected for total matrixecto my of the left great and second toenailspe rformed without incidentdr essing and wound care instructio n reviewed with the patientfol low up in 2 weeks Dystrophia unguium 37235 009 L60.3 left great toeas above [id number] Izaiah Shah DPM [facility] [place] [address], [address] [place] [address] 05/25/2023 09:13:21 05/25/2023 10:07:53 Avulsion of toenail of left foot [id number] S91.202D left secondcont daily woundrecom mend cleaning with hibiclens daily and apply gent with band aid, 3 times dailykeep clean and covered at all timesfollo w up in 1week Avulsion of toenail 4309 88535 S91.205D left great toeas above [id number] Corry Armstrong NP [facility] Internal [facility] [address] [facility] [place] [address] 08/11/2023 12:17:51 08/11/2023 12:46:25 Acute sinusitis 08350037 J01.90 [id number] Xavier Saucedo MD [facility] [address] [facility] [place] [address] 09/12/2023 08:57:46 09/12/2023 09:27:21 Adult health examination [id number] Z00.00 Colonoscop y- NEVERMammo gram- 12/03/2022 FLU- 2023COVID- has had 3 Obesity 047483361 E66.9 advised to watch diet Hypertriglyceridemia 302 171234 E78.1 watch diet Smoker 06820873 F17.200 has cut down Vitamin D deficiency 347 88449 E55.9 on otc 5000 u daily Health Concerns Section Related Observation LastModified by Organization Detai ls LastModified Time None Recorded Concern Status LastModified by Organization Details LastModified Time None Recorded Advance Directives Directive None Recorded Payers Encounter Date Sequence Insurance Name Policy Number Policy Guido Covered Member ID Guido Member ID Guarantor Name 09/30/2022 1 [place] [id number] Juana Henry [id number] Juana Henry 05/09/2023 1 [place] [id number] Juana Henry [id number] Juana Henry 05/25/2023 1 [place] [id number] Juana Henry [id number] Juana Henry 08/11/2023 1 [place] [id number] Juana Henry [id number] Juana Henry 09/12/2023 1 [place] [id number] Juana Henry [id number] Juana Henry Notes Date Note Type Note Provider Name and Address Organization Details Recorded Time 09/30/2022 text/html She is here toda y to go over labs from earlier this weekshe had labs done at her gyne, Hb and HCT was high , wbc was 13she had repeat labs done and numbers are much bettet. she is a smoker Trying to lose weight, working out, watching diet, has lost some but not muchTSH was nl recently Xavier Saucedo MD [address], [address], [place], [address], [email or web address] 09/30/2022 11:29:31 05/09/2023 text/html Patient comes in due to injury of the left second toenail. Patient partial avulsed the nail after stubbing the left 2nd toe. Patient states its painful and been bleeding. Patient states that she also he pain to the left great toenail due to incurvation without infection. Patient states that after her procedure with removal of the right great and second toenails she has done very well and would like this to the left first and second toenails as well. Izaiah Shah DPM [address], [address], [place], [address], [email or web address] 05/09/2023 15:48:03 05/25/2023 text/html Patient is on 43 year-old female, who returns the office for follow up on toenail avulsion of the left great and second toes. Patient states overall she is doing well. Patient denies any fever, chills, nausea or vomiting. Patient has some escorting to the nail beds with some mild inflammation to the proximal nail folds. Patient states she is not having any significant pain has mild tenderness. Patient states she has been cleaning the area and applying topical Neosporin. Patient denies any other complaints. Izaiah Shah DPM [address], [address], [place], [address], [employer] 05/25/2023 10:06:05 08/11/2023 text/html has been having sinus issues for over three weeks, inside nostrils is swollen she feels swelling in her ears and throat, feels snotty on the inside. Corry Armstrong NP [address] [facility], [address], [place], [address], [employer] 08/11/2023 12:47:22 09/12/2023 text/html Here for routine f/u, no current meds, Hypertrig- was at 302, has been going up for yrs, doing exercises and watching diet. Could not take fenofibrate-was causing headaches and nausea/ cramps in the stomach Obesity- gained 2 lbs,Smoker- Smokes 1 pk/day since the age of 14, no symptoms Vit d def- takes OTC daily , Abn mammogram- repeat was nl in 07/29 Xavier Saucedo MD [address] [facility], [address], [place], [address], [employer] [facility] [employer] 09/12/2023 09:27:02 OBGyn Episode No OBEpisode recorded.
--- OUTSIDE RECORDS SUMMARY | 2024-07-11 00:10 | XMS_ITS | Data Portability ---
[facility] Address [address] [place] [address] Assessment No assessment recorded. Plan of Treatment Reminders Order Date Submit Date Provider Last Modified By Organization Details Last Modified Time Details Appointments None recorded. Lab pap, IG + HPV, cervical 2014 015 [email or web address] [facility], [address] [place] [address] [address], [address], [place], [address], 5 13:48:28 test, urine 2014 015 [email or web address] In-Office Order, Internal Use Only DO Not Attach Compendium DO Not Attach Compendium, Do Not Delete/merge, [id number] 5 12:01:49 bacterial vaginosis + vaginitis panel, vaginal 2014 015 [employer] [facility], [address] [place] [address] [address], [address], [place], [address], 5 13:48:28 HSV (1+2) DNA, qual, PCR, unspecifi ed specimen 2014 015 [employer] [facility], [address] [place], [place] [address], [address], [place], [address], 5 13:48:28 culture, vaginal/r ectal, streptoco ccus group B 2014 015 [employer] [facility], [address] [place], [place] [address] [address], [address], [place], [address], 13:48:28 hsv-2 (herpes simplex virus type 2) igg Ab, serum 2014 [facility]15 [facility], [address], [address], [place], [address], 5 10:09:18 hepatitis panel (A+B+C), acute, serum 2014 015 [employer] [facility], [address], [address], [place], [address], 10:09:18 hepatitis B surface Ab, qualitati ve, serum 2014 015 [facility], [address], [place], [address], 5 10:09:18 HIV (1+O+2) Ab, serum 2014 015 [facility], [address], [address], [place], [address], 5 10:09:18 RPR (rapid plasma reagin), serum 2014 015 [facility], [address], [address], [place], [address], 10:09:19 Referral None recorded. Procedures None recorded. Surgeries None recorded. Imaging None recorded. Medication Orders None recorded. Patient TargetsNo targets recorded. Patient Instructions Encounter Date Encounter Id Patient Instructions Last Modified By Organization Details Last Modified Time 12/16/2014 [id number] learning about breast cancer screening Not available 01/08/2015 13:48:28 Reason for Referral None Reported. Results Created Date Observation Date Name Description Value Unit Range Abnormal Flag Note LastModifiedBy Organization Detail LastModifiedTime 12/23/19 15 12/22/2014 pregn jace test, urine HCG negati ve Not Available In-Office Order Internal Use Only DO Not Attach Compendium DO Not Attach Compendium, Do Not Delete/merge, [id number] 12/22/2014 15:19:00 12/17/19 15 12/19/2014 pap, IG + HPV, cervi an diagnosis: VAISHNAVI GREEN IVIS FOR INTRA EPITH ELIAL LESANDREA N AND GRADY CRAIG . Not Available [facility] ([facility]) [address] [facility], [place], [address], 12/20/2014 06:11:08 12/17/19 15 12/19/2014 pap, IG + HPV, cervi an specimen adequacy: VAISHNAVI Cosme SATIS FACTO GLADIS FOR EVALU ATION . ENDOC ERVIC AL AND/O R SQUAM OUS METAP LASTI C CELLS (ENDO CERVI AN COMPO NENT) ARE PRESE NT. Not Available [facility] ([facility]) [address] [facility], [place], [address], 12/20/2014 06:11:08 12/17/19 15 12/19/2014 pap, IG + HPV, cervi an clinician provided ICD9: VAISHNAVI Cosme V72.3 1 ; ALO BUCHANAN GYNEC OLOGI AN EXAMI NATIO N Not Available [facility] ([facility]) [address] [facility], [place], [address], 12/20/2014 06:11:08 12/17/19 15 12/19/2014 pap, IG + HPV, cervi an performed by: VAISHNAVI Miller, CYTOT PING FELIPE T (ASCP ) Not Available [facility] ([facility]) [address] [place], [address], 12/20/2014 06:11:08 12/17/19 15 12/19/2014 pap, IG + HPV, cervi an . . Not Available [facility] ([facility]) [address] [place], [address], 12/20/2014 06:11:08 12/17/19 15 12/19/2014 pap, IG + HPV, cervi an note: COMMEN T THE PAP SMEAR IS A SCREE YO TEST DESIG ADOLFO TO AID IN THE DETEC TION OF ABI LIGNA NT AND MALIG NANT CONDI TIONS OF THE UTERI NE CERVI X. IT IS NOT A DIAGN OSTIC PROCE DURE AND SHOUL D NOT BE USED THE SOLE MEANS OF DETEC TING CERVI AN CANCE R. BOTH FALSE -POSI TIVE AND FALSE -NEGA TIVE REPOR TS DO OCCUR . Not Available [facility] ([facility]) [address] [place], [address], 12/20/2014 06:11:08 12/17/19 15 12/19/2014 pap, IG + HPV, cervi an test methodology: COMMEN T THIS LIQUI D BASED THINP REP(R ) PAP TEST WAS SCREE ADOLFO WITH THE USE OF AN IMAGE GUIDE Guillermo Telles. Not Available [facility] ([facility]) [address] [place], [address], 12/20/2014 06:11:08 12/17/19 15 12/19/2014 pap, IG + HPV, cervi an HPV aptima NEGATI VE negati ve THIS TEST DETEC TS FOURT EEN HIGH- RISK HPV TYPES (16/1 8/31/ 33/35 /39/4 5/ 51/52 /56/5 8/59/ 66/68 ) WITHO UT DIFFE RENTI ATION . Not Available [facility] ([facility]) [address] [facility], [place], [address], 12/20/2014 06:11:08 12/17/1912/18/2014 bacte rial vagin osis + vagin itis panel , vagin al atopobium vaginae LOW - 0 score Not Available [facility] ([facility]) [address] [facility], [place], [address], 01/01/2015 16:34:25 12/17/19 15 12/18/2014 bacte rial vagin osis + vagin itis panel , vagin al bvab 2 LOW - 0 score Not Available [facility] ([facility]) [address] [place], [address], 01/01/2015 16:34:25 12/17/19 15 12/18/2014 bacte rial vagin osis + vagin itis panel , vagin al megasphaera 1 LOW - 0 score CALCU LATE TOTAL SCORE BY DUSTY Carcamo THE 3 INDIV IDUAL BACTE RIAL VAGIN OSIS (BV) MARKE R SCORE S TOGET HER. TOTAL SCORE IS INTER PRETE D FOLLO WS: TOTAL SCORE 0-1: INDIC ATES THE ABSEN CE OF BV. TOTAL SCORE 2: INDET ERMIN ATE FOR BV. ADDIT IONAL CLINI AN DATA SHOUL D BE EVALU ATED TO ESTAB SUKUMAR A DIAGN OSIS. TOTAL SCORE 3-6: INDIC ATES THE PRESE NCE OF BV. THIS TEST WAS DEVEL OPED AND ITS PERFO RMANC E VADIM CTERI STICS DETER MINED BY [employer]. IT HAS NOT BEEN CLEAR ED OR APPRO NATHANIEL BY THE FOOD AND DRUG ADMIN ISTRA TION. THE FDA HAS DETER MINED THAT SUCH CLEAR ANCE OR APPRO RAYMOND IS NOT NECES CASEY. Not Available [facility] ([facility]) [address] [facility], [place], [address], 01/01/2015 16:34:25 12/17/19 15 12/19/2014 bacte rial vagin osis + vagin itis panel , vagin al joy albicans, LIANE POSITI VE negati ve abnormal Not Available [facility] ([facility]) [address] [facility], [place], [address], 01/01/2015 16:34:25 12/17/1912/19/2014 bacte rial vagin osis + vagin itis panel , vagin al joy glabrata, LIANE NEGATI VE negati ve THIS TEST WAS DEVEL OPED AND ITS PERFO RMANC E VADIM CTERI STICS DETER MINED BY [employer]. IT HAS NOT BEEN CLEAR ED OR APPRO NATHANIEL BY THE FOOD AND DRUG ADMIN ISTRA TION. THE FDA HAS DETER MINED THAT SUCH CLEAR ANCE OR APPRO RAYMOND IS NOT HORTENCIA PEÑA. Not Available [facility] ([facility]) [address] [place], [address], 01/01/2015 16:34:25 12/17/19 15 01/01/2015 bacte rial vagin osis + vagin itis panel , vagin al trich vag by LIANE NEGATI VE negati ve Not Available [facility] ([facility]) [address] [place], [address], 01/01/2015 16:34:25 12/17/19 15 01/01/2015 bacte rial vagin osis + vagin itis panel , vagin al chlamydia trachomatis, LIANE NEGATI VE negati ve Not Available [facility] ([facility]) [address] [place], [address], 01/01/2015 16:34:25 12/17/19 15 01/01/2015 bacte rial vagin osis + vagin itis panel , vagin al neisseria gonorrhoeae, LIANE NEGATI VE negati ve Not Available [facility] ([facility]) [address] [place], [address], 01/01/2015 16:34:25 12/17/19 15 12/18/2014 HSV (1+2) DNA, qual, PCR, unspe cifie d speci men hsv 1 LIANE NEGATI VE negati ve Not Available [facility] ([facility]) [address] [place], [address], 01/01/2015 16:34:26 12/17/19 15 12/18/2014 HSV (1+2) DNA, qual, PCR, unspe cifie d speci men hsv 2 LIANE NEGATI VE negati ve Not Available [facility] ([facility]) [address] [place], [address], 01/01/2015 16:34:26 12/17/19 15 12/18/2014 cultu re, vagin al/re ctal, strep tococ cus group B strep gp B LIANE POSITI VE negati ve abnormal PENIC ILLIN G, AMPIC ILLIN , OR CEFAZ MIKKI ARE INDIC ATED FOR INTRA PARTU M PROPH YLAXI S OF PERIN ATAL GROUP B STREP (GBS) COLON IZATI ON. REFLE X SUSCE PTIBI LITY TESTI NG SHOUL D BE PERFO RMED PRIOR TO USE OF CLIND AMYCI N ONLY ON GBS ISOLA YENIFER FROM PENIC ILLIN -JENNIFER RGIC WOMEN WHO ARE CONSI DERED A HIGH RISK FOR ANAPH YLAXI S. TREAT MENT WITH VANCO MYCIN WITHO UT ADDIT IONAL TESTI NG IS WARRA NTED IF RESIS TANCE TO CLIND AMYCI N IS NOTED . (CDC GUIDE LINES , MMWR, 2009) Not Available [facility] ([facility]) [address] [place], [address], 01/01/2015 16:34:26 01/29/20 15 01/29/2015 hepat itis panel (A+B+ C), acute , serum hep A Ab, IgM NEGATI VE negati ve Not Available [facility] ([facility]) [address] [place], [address], 01/29/2015 08:54:13 01/29/20 15 01/29/2015 hepat itis panel (A+B+ C), acute , serum HBsAg screen NEGATI VE negati ve Not Available [facility] ([facility]) [address] [place], [address], 01/29/2015 08:54:13 01/29/20 15 01/29/2015 hepat itis panel (A+B+ C), acute , serum hep B core Ab, IgM NEGATI VE negati ve Not Available [facility] ([facility]) [address] [place], [address], 01/29/2015 08:54:13 01/29/20 15 01/29/2015 hepat itis panel (A+B+ C), acute , serum hep C virus Ab 0.1 S/co_ ratio 0.0-0. 9 NEGAT IVIS: < 0.8 INDET ERMIN ATE: 0.8 - 0.9 POSIT IVIS: > 0.9 IN ORDER TO REDUC E THE INCID ENCE OF A FALSE POSIT IVIS RESUL T, THE [facility] RECOM MENDS THAT ALL S/CO RATIO S BETWE EN 1.0 AND 10.9 BE CONFI RMED BY A MORE SPECI FIC SUPPL EMENT AL OR PCR TESTI NG. LAB[facility] RP OFFER S HCV AB W/REF KEIRA TO VERIF ICATI ON TEST #[id number] 65. Not Available [facility] ([facility]) [address] [place], [address], 01/29/2015 08:54:13 01/29/20 15 01/29/2015 HIV (1+O+ 2) Ab, serum HIV 1/O/2 abs-index value <1.00 <1.00 INDEX VALUE : SPECI MEN REACT IVITY RELAT IVIS TO THE NEGAT IVIS CUTOF F. Not Available [facility] ([facility]) [address] [place], [address], 01/29/2015 08:54:14 01/29/20 15 01/29/2015 HIV (1+O+ 2) Ab, serum HIV 1/O/2 abs, qual NON REACTI VE non reacti ve Not Available [facility] ([facility]) [address] [place], [address], 01/29/2015 08:54:14 01/29/20 15 01/29/2015 hepat itis B surfa ce Ab, quali tativ e, serum hep B surface Ab, qual NON REACTI VE NON REACT IVIS: INCON SISTE NT WITH IMMUN ITY, LESS THAN 10 MIU/M L REACT IVIS: CONSI STENT WITH IMMUN ITY, GREAT ER THAN 9.9 MIU/M L Not Available [facility] ([facility]) [address] [place], [address], 01/29/2015 08:54:15 01/29/20 15 01/29/2015 RPR (rapi d plasm a reagi n), serum RPR NON REACTI VE non reacti ve Not Available [facility] ([facility]) [address] [facility], [place], [address], 01/29/2015 08:54:15 01/29/20 15 01/29/2015 hsv-2 (herp es simpl ex virus type 2) igg Ab, serum hsv 2 IgG, type spec <0.91 index 0.00-0 .90 NEGAT IVIS <0.91 EQUIV OCAL 0.91 - 1.09 POSIT IVIS >1.09 NOTE: NEGAT IVIS INDIC ATES NO ANTIB ODIES DETEC LOS TO HSV-2 . EQUIV OCAL MAY SUGGE ST EARLY INFEC TION. IF CLINI XOCHILT APPRO PRIAT E, RETES T AT LATER DATE. POSIT IVIS INDIC ATES ANTIB ODIES DETEC LOS TO HSV-2 . Not Available [facility] ([facility]) [address] [facility], [place], [address], 01/29/2015 08:54:16 Result Notes None recorded. Problems Name Problem SNOMED Code Status Onset Date Resolution Date Notes Provider Name and Address Organization Details Recorded Time Candidiasis of vagina 54946299 Active Vel Rajesh tatum, [facility] 5 11:34:21 Problem Notes None recorded. Procedures Surgical History Date Name Laterality Status Provider Name and Address Organization Details Recorded Time 1 Date of Last Pap Smear completed Stephy Pak MA [facility] 12/16/2014 11:54:55 1 Orthopedic Surgery completed Stephy Pak MA [facility] 12/16/2014 11:58:39 0 Tubal Ligation completed Stephy Pak MA [facility] 12/16/2014 11:58:39 9 Other completed Stephy Pak MA [facility] 12/16/2014 11:58:39 Imaging Results None recorded. Procedure Notes None recorded. Medical Equipment None Reported. Allergies No known drug allergies Medications Name Sig Start Date Stop Date Status Note LastModified by Organization Details LastModified Time neomycin-poly myxin-hydroco rt 3.5 mg/mL-10,000 unit/mL-1 % ear solution active Not Available Not Available Not Available fluconazole 150 mg tablet Take 1 tablet by oral route. 015 active Not Available Not Available Not Avai lable hydrocodone 5 mg-acetaminop hen 325 mg tablet active Not Available Not Available Not Available Zithromax Z-Unruly 250 mg tablet TAKE 2 TABLETS (500 MG) BY ORAL ROUTE ONCE DAILY FOR 1 DAY THEN 1 TABLET (250 MG) BY ORAL ROUTE ONCE DAILY FOR 4 DAYS 015 active Not Available Not Available Not Avai lable amoxicillin 875 mg-potassium clavulanate 125 mg tablet active Not Available Not Availabl e Not Available Vitals Date Recorded Body height Body mass index (BMI) Body weight Systolic blood pressure Diastolic blood pressure Provider Name and Address Organization Details Last Updated DateTime 12/16/2014 165.1 cm 36.1 kg/m2 60478.54 429 g 108 mm[Hg] 70 mm[Hg] Stephy Pak MA [facility] 5 12:05:20 Social History Question Answer Notes LastModified by Organizat ion Details LastModified Time Tobacco Smoking Status Former Smoker Stephy Pak MA null, [facility] 12/16/2014 12:01:04 Do You Have An Advance Directive? No Information not available 12/16/2014 What Is Your Level Of Alcohol Consumption? Occasional Information not available 12/16/2014 Is Blood Transfusion Acceptable In An Emergency? Yes Information not available 12/16/2014 What Is Your Level Of Caffeine Consumption? Moderate Information not available 12/16/2014 How Much Tobacco Do You Chew? None Information not available 12/16/2014 Are You Currently Employed? Yes Information not available 12/16/2014 What Type Of Diet Are You Following? REGULAR Information not available 12/16/2014 Which Illicit Or Recreational Drugs Have You Used? None Information not available 12/16/2014 Education 12 Information no t available 12/16/2014 What Is Your Occupation? [employer] Information not available 12/16/2014 Live Alone Or With Others? With Others Information not available 12/16/2014 How Many Children Do You Have? 2 Information not available 12/16/2014 Performs Monthly Self-breast Exam? Yes Information no t available 12/16/2014 Do You Use Protection During Sex? No Information not available 12/16/2014 What Is Your Relationship Status? Information not available 12/16/2014 Seat Belts Used Routinely Yes Information not available 12/16/2014 Are You Sexually Active? Yes Information not available 12/16/2014 At What Age Did You Start Smoking Tobacco? 14 Information not available 12/16/2014 How Much Tobacco Do You Smoke? 1 PPD Information not available 12/16/2014 General Stress Level Low Information not available 12/16/2014 Do You Use Sunscreen Routinely? Yes Information not available 12/16/2014 How Many Years Have You Smoked Tobacco? 15 Information not available 12/16/2014 Sex: Unknown Functional Status Question Answer Note LastModified by Organizat ion Details LastModified Time What is your exercise level? Occasional Information not available 12/16/2014 Mental Status None recorded. Family History Relationship Description Onset Age of this Age Resolved Age Notes LastModified by Organization Details LastModified Time Maternal Aunt Malignant tumor of colon [email or web address] Not available 12/16 12:17:19 Medical History No medical history recorded. Gynecological History Statement/Question Response Abnormal Pap Y Flow Heavy On BCP's at Conception? N STIs/STDs N HPV Vaccine N Duration of Flow (days) 5 Age at Menarche 10 Current Control Method Tubal Ligat ion Age at First Child 19 Sexually Active? Y Menses Monthly Y Date of Last Pap Smear 07/09/2010 Sexual Problems? N LMP Approximate Desired Control Method None Obstetrics History GPAL:G 2 P 0 0 0 2 Type Value Living 2 Total 2 Past Encounters Encounter ID Performer Location Encounter Start Date Encounter Closed Date Diagnosis/Indication Diagnosis SNOMED-CT Code Diagnosis ICD10 Code Diagnosis Note [id number] Radha Mercedes ([employer]) [address] [place] [address] 12/16/2014 11:03:03 12/16/2014 13:29:32 Gynecologic examination 21473020 Venereal d isease screening [id number] Screening for malignant neoplasm of breast [id number] Health Concerns Section Related Observation LastModified by Organization Detai ls LastModified Time None Recorded Concern Status LastModified by Organization Details LastModified Time None Recorded Advance Directives Directive N: Payers Encounter Date Sequence Insurance Name Policy Number Policy Guido Covered Member ID Guido Member ID Guarantor Name 12/16/2014 1 [place] [id number] Juana Iyer [id number] Juana Iyer OBGyn Episode Ob Episode Information Episode Created Date Number of Fetuses Patient Bloodtype Patient rh Status Prepregnancy Weight lbs Domestic Partner Domestic Partner Phone Father Name Extract Operator Status 12/17/19 15 1 CLOSED Fetus Data First Name Last Name Admitted to NICU Weight (g) Sex Living Outcome Pediatric Complications Fetus ID Race Codes Race Delivery Type 3685.43 5 M Full Term [id number] Vaginal Bertin Calculation Initial Bertin Date Initial Exam [...] Complications Tubal Sterilization Discharge Date Comments 2 [facility]- idural 40 Discharge Information Feeding Method Contraceptive Method Maternal HG B and HCT Levels Ob Episode Information Episode Created Date Number of Fetuses Patient Bloodtype Patient rh Status Prepregnancy Weight lbs Domestic Partner Domestic Partner Phone Father Name Extract Operator Status 12/17/19 15 1 CLOSED Fetus Data First Name Last Name Admitted to NICU Weight (g) Sex Living Outcome Pediatric Complications Fetus ID Race Codes Race Delivery Type 3033.39 64 F Full Term [id number] Vaginal Bertin Calculation Initial Bertin Date Initial Exam [...] Complications Tubal Sterilization Discharge Date Comments 0 None 40 Discharge Information Feeding Method Contraceptive Method Maternal HG B and HCT Levels
[2024-07-11 11:22] VITALS: BP 123/79; PULSE 95; RESP 16; TEMP 35.9; O2SAT 100; BMI 42.0
[2024-07-11] MEDS: LACTATED RINGERS 1,000 ML 150 ML IV CONT (11:31)
[2024-07-11 12:01] LABS: BEDSIDEPREGUCG Negative (Negative)
--- NOTE | 2024-07-11 12:16 | WPDANESEPPF ---
Anes - Initial Pre Proc Eval Procedure: Operation Date: 07/11/24 12:30 Proposed Procedures p Screening Colonoscopy - Lev Funk MD Date/Time: 07/11/24 12:16 Surgeon: Lev Funk MD Pre Op Diagnosis: neoplasm screening Patient Data Age: 44 Gender: F Height: 1.6 m Weight: 107.8 kg Last Vital Signs Temp 96.6 F L 07/11/24 11:22 Pulse 95 07/11/24 11:22 Resp 16 07/11/24 11:22 BP 123/79 07/11/24 11:22 Pulse Ox 100 07/11/24 11:22 O2 Del Method Room Air 07/11/24 11:22 Allergies Allergy/AdvReac Type Severity Reaction Status Date / Time No Known Allergies Allergy Verified 07/11/24 11:21 Home Medications ?Medication ?Instructions ?Recorded ?Confirmed ?Type No Home Medications 07/01/24 07/01/24 History Laboratory Tests 07/11/24 11:55 POC Urine HCG, Qual Negative (Negative) Patient hx anesthesia problems: none Family hx anesthesia problems: none Results Review: All pre-operative results and documents have been reviewed as part of the pre-operative evaluation. [facility] Social History Social History Years smoked: 20 Smoking status: Current every day smoker Tobacco type: cigarettes Alcohol intake: never Substance use: never Substance use type: does not use Living arrangements: with family Spiritual care concerns: No Anes - Eval Final PreProcedure Day of Procedure 07/11/24 12:16 Patient weight: morbidly obese Heart: regular rate and rhythm Lungs: clear to auscultation Airway: Mallampati scale class II Neurological: alert and oriented Last oral intake: >/= 8 hours ASA classification: III Emergent: no Anesthetic plan: proceed Anesthesia type and monitoring: general GIVS and standard monitoring Results Review: All pre-operative results and documents have been reviewed as part of the pre-operative evaluation. Informed Consent: The patient's anesthetic plan and its attendant risks and benefits were discussed with the patient/family/POA. Questions were solicited and answers provided to the satisfaction of the patient/family/POA.
--- NOTE | 2024-07-11 12:41 | PM.HPGS ---
History of Present Illness History of Present Illness Consent: Risks, benefits, and alternatives have been discussed and questions answered. Patient agrees to proceed with procedure. Chief complaint: neoplasm screening Narrative: Juana Henry is a 44 year old female here for first screening colonoscopy Review of Systems Review of Systems: All systems reviewed & are unremarkable except as noted in HPI and below PMFSH Past Medical History Medical History (Updated 07/11/24 @ 12:43 by Lev Funk MD) Colon cancer screening Social History Social History Years smoked: 20 Smoking status: Current every day smoker Tobacco type: cigarettes Alcohol intake: never Substance use: never Substance use type: does not use Living arrangements: with family Spiritual care concerns: No Meds Home Medications and Allergies Home Medications ?Medication ?Instructions ?Recorded ?Confirmed ?Type No Home Medications 07/01/24 07/01/24 History Allergies Allergy/AdvReac Type Severity Reaction Status Date / Time No Known Allergies Allergy Verified 07/11/24 11:21 Vital Signs Vital Signs - 24 hr 07/11/24 11:22 Temperature 96.6 F L Pulse Rate 95 Respiratory Rate 16 Blood Pressure 123/79 Pulse Oximetry 100 Oxygen Delivery Room Air Exam Const: General: comfortable and no acute distress HENMT: Face/Nose/Sinus: Normal nares present Eyes: General: appearance normal, both eyes and all related structures Neck: Neck: no JVD Resp: Auscultation: clear to auscultation bilaterally Cardio: Rate: regular rate Rhythm: regular rhythm GI: Inspection: non-distended GI Palp: Yes Soft to palpation Skin: General skin exam: normal color Neuro: General: gait normal Speech: normal speech Extrem: General: normal to inspection Psych: Mental Status: mental status grossly normal Assessment and Plan Assessment and plan (1) Colon cancer screening: Code(s): Z12.11 - Encounter for screening for malignant neoplasm of colon Status: Acute Assessment and Plan: colonoscopy
[2024-07-11 13:09] VITALS: BP 103/64; PULSE 72; RESP 17; O2SAT 98
[2024-07-11 13:19] VITALS: BP 106/68; PULSE 66; RESP 19; O2SAT 98
[2024-07-11 13:33] VITALS: BP 112/67; PULSE 69; RESP 19; O2SAT 98
== END 2024-07-11 13:37 | disposition home or self-care (01) ==
PROVIDERS: Anesthesiology; PCP Internal Medicine; Referring Provider Obstetrics & Gynecology; Visit Provider Internal Medicine Gastroenterology
PROC: 0DJD8ZZ Inspection of Lower Intestinal Tract, Via Natural or Artificial Opening Endoscopic (ICD-10-PCS; CPT 45378; principal; 2024-07-11 12:30)
DX: Z12.11 Encounter for screening for malignant neoplasm of colon (principal); K57.30 Diverticulosis of large intestine without perforation or abscess without bleeding; D12.2 Benign neoplasm of ascending colon; F17.210 Nicotine dependence, cigarettes, uncomplicated
CPT/HCPCS: 45385; 88305; J2003; J2704; J7120